=== PATIENT | female | born 1975 | race Caucasian/White ===

== ENCOUNTER 2023-01-23 12:17 | Inpatient (IN) | payer OTHER, MEDICAID, SELFPAY ==
[2023-01-23] VITALS (25 sets, daily range): BP systolic 91–113; BP diastolic 59–81; PULSE 65–115; RESP 11–23; TEMP 36.3–37.9; O2SAT 95–100; BMI 14.1
--- NOTE | 2023-01-23 | DI.CT.S_ITS ---
PROCEDURE: CT CHEST ABD PEL W CON INDICATIONS: fever infection TECHNIQUE: After the administration of intravenous contrast, 5 mm thick sections acquired from the lung apices to the symphysis. 2.5 mm thick coronal and sagittal reformats were acquired. Additional 7 mm thick coronal maximum intensity projection (MIP) reformats acquired through the lungs. Optional 10-minute delayed imaging may be performed from the kidneys to the bladder. For radiation dose reduction, the following was used: automated exposure control, adjustment of mA and/or kV according to patient size. COMPARISON: Outside Film, CT, CT ABDOMEN PELVIS WITH CONTRAST, 06/14/2021, 16:23. FINDINGS: Image quality: Excellent. CHEST: Lungs: No pulmonary contusions or lacerations. Moderate apically predominant emphysema. No acute airspace opacities. No pneumothorax or hemothorax. Central and peripheral airways appear patent and normal in caliber. Mediastinum: No mediastinal hematomas. Heart size is normal. No pericardial effusion. Thoracic aorta and pulmonary arteries demonstrate normal size and enhancement. No mediastinal or hilar adenopathy. Esophagus is normal in caliber. No hiatal hernia. Chest wall: No rib fractures. No subcutaneous emphysema. No axillary or supraclavicular adenopathy. Thyroid gland is within normal limits. ABDOMEN: Solid organs: Liver is normal in size and enhancement, without lacerations. Gallbladder is within normal. Biliary system is non-dilated. A common bile duct stent is present. There is increased, severe pancreatic ductal dilatation. Increased, severe diffuse calcifications throughout the pancreas. Ill-defined low-density focus within the uncinate process of the pancreas measuring 27 mm. There is a peripherally enhancing low-density focus adjacent to the pancreatic tail measuring roughly 50 mm. Spleen is normal in size and enhancement, without lacerations. No adrenal hematomas. Both kidneys enhance normally, without hydronephrosis or lacerations. Nonobstructing 4 mm calculus within the inferior pole left kidney. Peritoneum and bowel: No pneumoperitoneum. Small amount of free fluid in the pelvis. Unenhanced bowel loops demonstrate normal wall thickness and caliber. Nodes and vessels: No retroperitoneal or mesenteric adenopathy. Aorta and inferior vena cava are normal in size and enhancement. Miscellaneous: No ventral hernias. PELVIS: Genitourinary: Bladder wall thickness is normal. Miscellaneous: No inguinal hernias or adenopathy. Bones: Pelvic ring and hip joints appear intact. No vertebral compression fractures. IMPRESSION: 1. Chronic pancreatitis. 2. Low-density focus within the uncinate process of the pancreas, consistent with neoplasm versus pseudocyst versus infection. There is associated pancreatic ductal dilatation. 3. Peripancreatic fluid collection adjacent to the pancreatic tail, consistent with pseudocyst versus abscess. 4. Small amount of free fluid within the pelvis. 5. Nonobstructing left renal calculus. 6. Emphysema. Dictated by: Christian Sims M.D. on 01/23/2023 at 14:06 Approved by: Christian Sims M.D. on 01/23/2023 at 14:10
--- NOTE | 2023-01-23 12:33 | DI.RAD.S_ITS ---
PROCEDURE: XR CHEST 1V INDICATIONS: altered mental status TECHNIQUE: One view of the chest was acquired. COMPARISON: None. FINDINGS: Surgical changes and devices: None. Lungs and pleura: Lungs are clear. No pleural effusions or pneumothorax. Mediastinum: Mediastinal contours appear normal. Heart size is normal. Bones and chest wall: No suspicious bony lesions. Overlying soft tissues appear unremarkable. IMPRESSION: No acute process. Dictated by: Christian Sims M.D. on 01/23/2023 at 13:01 Approved by: Christian Sims M.D. on 01/23/2023 at 13:02
--- NOTE | 2023-01-23 12:35 | PC.NURSE ---
Dr. meyers aware of VS and presentation
--- NOTE | 2023-01-23 12:51 | ED_ITS ---
HPI - Weakness General Chief complaint: Weakness Stated complaint: Twitching, dizzy, weak Time Seen by Provider: 01/23/23 12:23 Source: patient and family Mode of arrival: Wheelchair History of Present Illness HPI Narrative: Patient is a 47-year-old female history of alcohol abuse sober for 3 years general decline here with son presenting today with slurring speech altered mental status and shaking. Apparently was at [facility] recently she reports some abdominal pain some sort of imaging and blood transfusion. Unclear if she has blood in stool or vomiting blood she is overall very poor historian. She seems altered and obviously shaking son reports never been this way before. She is identified as sepsis with temperature of a 100.2? tachycardic and soft blood pressure 101/68. She has no abdominal pain. Not currently vomiting Records from [facility] on January 05 received and reviewed. Patient has chronic pancreatitis she is biliary stent she was supposed to see GI for stent removal stone removal and pain injection however due to pain they referred her to the ED she has been seen at the ED numerous times for pain and unable to make GI appointments which were canceled for various reasons. Patient had blood work at that time and a CT which showed acute on chronic pancreatitis she was resting comfortably instructed to follow-up with GI apparently she sees Dr. Reveles at [facility]. There is an addendum at the end of the note on January 07 which shows that urine culture grew E coli however at the time of collection there were no signs or symptoms. She did have a few leukocyte esterase and bacteria no nitrates. Related Data Allergies Allergy/AdvReac Type Severity Reaction Status Date / Time No Known Drug Allergies Allergy Verified 01/23/23 13:02 Patient History Social History household members: children Smoking Status: Current every day smoker alcohol intake: former Exam Initial Vital Signs Initial Vital Signs: Vital Signs Blood Pressure 101/68 01/23/23 12:22 GENERAL: Alert thin pale 47-year-old female HEENT: Head atraumatic,EOMI, pupils reactive, face symmetric, moist mucous membranes CARDIOVASCULAR: Regular rate and rhythm without murmurs, rubs or gallops. RESPIRATORY: Breath sounds equal bilaterally, no wheezes rales or rhonchi. ABDOMEN: Soft, nontender. Normoactive bowel sounds all 4 quadrants. No guarding or rebound. EXTREMITIES: Normal range of motion, no clubbing or edema. Neurovascularly intact NEUROLOGICAL: Alert and oriented x3, tremors shaking twitching moving all extremities generally weak SKIN: Warm, dry, no laceration, no petechiae, no rashes or lesions. Course Orders Ordered: ED Orders 01/23/23 12:33 XR chest 1V Stat EKG-12 Lead Stat 01/23/23 12:45 Acetaminophen Stat Blood Culture Stat Complete Blood Count AUTO DIFF Stat Comprehensive Metabolic Panel Stat ETOH [Ethanol (ETOH)] Stat Lactate (Lactic Acid) Stat Lipase Stat MAG [Magnesium] Stat Procalcitonin Stat Salicylate Stat TSH [Thyroid Stimulating Hormone] Stat 01/23/23 12:50 Respiratory Panel (Film Array) Stat 01/23/23 13:02 CT head/brain wo con Stat 01/23/23 13:17 Ammonia (NH3) Stat Type and Screen Stat 01/23/23 15:01 MR Ab Pancreatic/MRCP protocol Stat 01/23/23 15:10 UA Complete [Urinalysis and Microscopic] Stat Urine Drug Screen, Rapid Stat Enoxaparin Sodium (Enoxaparin 30 Mg/0.3 Ml Syringe) 30 mg SUBCUT DAILY JANETT Piperacillin Sod/Tazobactam (Sod 4.5 gm/ Sodium Chloride) 100 mls @ 25 mls/hr IV Q8H JANETT Ondansetron HCl (Ondansetron 4 Mg/2 Ml Inj) 4 mg IV Q6HR PRN PRN Reason: Nausea And Vomiting Ondansetron HCl (Ondansetron 4 Mg Odt) 4 mg SL Q6HR PRN PRN Reason: Nausea Discontinued Medications Sodium Chloride (Normal Saline 0.9%) 1,088.61 mls @ 362.87 mls/hr 30 ml/kg infuse over 3 hr (1088.61 ml) IV NOW ONE Stop: 01/23/23 16:37 Last Infusion: 01/23/23 14:03 Dose: Infused Documented By: Admin: 01/23/23 13:47 Dose: 362.87 mls/hr Documented By: PHIL Sodium Chloride (Normal Saline 0.9%) 1,000 mls @ 1,000 mls/hr IV BOLUS ONE Stop: 01/23/23 14:58 Last Infusion: 01/23/23 15:17 Dose: Infused Documented By: Admin: 01/23/23 14:03 Dose: 1,000 mls/hr Documented By: PHIL Piperacillin Sod/Tazobactam (Sod 4.5 gm/ Sodium Chloride) 100 mls @ 200 mls/hr IV NOW ONE Stop: 01/23/23 14:09 Last Infusion: 01/23/23 15:17 Dose: Infused Documented By: Admin: 01/23/23 14:27 Dose: 200 mls/hr Documented By: PHIL Vital Signs Vital signs: Vital Signs - 8 hr 01/23/23 12:22 01/23/23 12:23 01/23/23 12:27 Temperature 100.2 F H Pulse Rate 115 H 111 H Respiratory Rate 20 Blood Pressure 101/68 101/68 Pulse Oximetry 97 98 Oxygen Delivery Method Room Air 01/23/23 12:30 01/23/23 12:30 01/23/23 12:45 Temperature Pulse Rate 109 H 107 H Respiratory Rate 14 15 Blood Pressure 111/74 Pulse Oximetry 97 95 Oxygen Delivery Method 01/23/23 12:45 01/23/23 13:00 01/23/23 13:00 Temperature Pulse Rate 104 H Respiratory Rate 20 Blood Pressure 108/76 112/77 Pulse Oximetry 98 Oxygen Delivery Method 01/23/23 13:15 01/23/23 13:15 01/23/23 13:30 Temperature Pulse Rate 95 H 83 Respiratory Rate 16 16 Blood Pressure 113/78 Pulse Oximetry 99 100 Oxygen Delivery Method 01/23/23 14:00 01/23/23 14:27 01/23/23 14:27 Temperature Pulse Rate 93 H 96 H Respiratory Rate 17 18 Blood Pressure 105/76 Pulse Oximetry 98 95 Oxygen Delivery Method 01/23/23 14:30 01/23/23 14:30 01/23/23 14:45 Temperature Pulse Rate 82 87 Respiratory Rate 16 16 Blood Pressure 110/81 Pulse Oximetry 96 96 Oxygen Delivery Method 01/23/23 14:45 01/23/23 15:00 01/23/23 15:00 Temperature Pulse Rate 95 H Respiratory Rate 18 Blood Pressure 109/71 113/75 Pulse Oximetry 96 Oxygen Delivery Method 01/23/23 15:52 01/23/23 15:59 01/23/23 16:00 Temperature Pulse Rate 98 H 98 H Respiratory Rate 18 11 L Blood Pressure 101/74 Pulse Oximetry 99 Oxygen Delivery Method 01/23/23 16:00 01/23/23 16:15 01/23/23 16:15 Temperature Pulse Rate 97 H 94 H Respiratory Rate 14 23 Blood Pressure 96/71 Pulse Oximetry 98 96 Oxygen Delivery Method 01/23/23 16:30 01/23/23 16:30 01/23/23 17:00 Temperature Pulse Rate 88 84 Respiratory Rate 13 11 L Blood Pressure 98/64 Pulse Oximetry 96 Oxygen Delivery Method 01/23/23 17:15 01/23/23 17:15 01/23/23 17:30 Temperature Pulse Rate 82 Respiratory Rate 20 Blood Pressure 111/77 106/67 Pulse Oximetry 97 Oxygen Delivery Method Room Air 01/23/23 17:30 Temperature Pulse Rate 75 Respiratory Rate 16 Blood Pressure Pulse Oximetry 96 Oxygen Delivery Method MDM - Weakness Lab Data 01/23/23 12:45 01/23/23 12:45 Labs: Lab Results 01/23/23 01/23/23 01/23/23 Range/Units 12:45 12:50 13:17 WBC 15.3 H (4.5-11.0) X10^3/uL RBC 2.83 L (4.0-5.2) X10^6/uL Hgb 10.8 L (12.0-16.0) g/dL Hct 31.8 L (36-46) % MCV 112.1 H (80-100) fL MCH 38.3 H (26-34) PG MCHC 34.1 (30-36) % RDW 18.5 H (11.6-14.8) % Plt Count 108 L (150-400) X10^3/uL Neut % (Auto) Not Reportable Lymph % (Auto) Not Reportable Hampton % (Auto) Not Reportable Eos % (Auto) Not Reportable Baso % (Auto) Not Reportable Lymph # (Auto) Not Reportable [place] # (Auto) Not Reportable Baso # (Auto) Not Reportable Total Counted 100 Seg Neutrophils % 83.0 H (38-70) % Band Neutrophils % 2.0 L (3-7) % Lymphocytes % (Manual) 12.0 L (25-45) % Monocytes % (Manual) 3.0 (2-11) % Neutrophils # (Manual) 89688 H (3432-0103) /uL RBC Morphology See below Anisocytosis 1+ H Macrocytosis 2+ H Target Cells 2+ H Sodium 135 L (137-145) mmol/L Potassium 3.0 L (3.4-5.1) mmol/L Chloride 101 (98-107) mmol/L Carbon Dioxide 30 (22-32) mmol/L BUN 13 (7-17) mg/dL Creatinine 0.89 (0.52-1.04) mg/dL Estimated GFR > 60 (>60) mL/min BUN/Creatinine Ratio 14.6 (6-22) Glucose 105 H (70-100) mg/dL Lactate 2.6 H (0.7-2.1) mmol/L Calcium 8.3 L (8.4-10.2) mg/dL Magnesium 2.1 (1.6-2.3) mg/dL Total Bilirubin 1.3 (0.2-1.3) mg/dL AST 43 H (14-36) IU/L ALT 28 (<35) IU/L Alkaline Phosphatase 289 H (38-126) U/L Ammonia Cancelled 25 Total Protein 5.3 L (6.3-8.2) g/dL Albumin 2.3 L (3.5-5.0) g/dL Globulin 3.0 (1.7-4.1) g/dL Albumin/Globulin Ratio 0.8 L (1.0-2.8) Lipase 32 (23-300) U/L Procalcitonin 30.6 H (<0.5) ng/mL TSH 0.841 (0.47-4.68) uIU/mL Urine Color Urine Appearance Urine pH (4.5-8.0) Ur Specific Johnson (1.000-1.035) Urine Protein (Negative) Urine Glucose (UA) (Negative) g/dL Urine Ketones (NEGATIVE) Urine Occult Blood (Negative) Urine Nitrate (Negative) Urine Bilirubin (NEGATIVE) Urine Urobilinogen (0.2) E.U./dL Ur Leukocyte Esterase (NEGATIVE) Urine RBC (0-5/HPF) Urine WBC (0-5/HPF) Ur Squamous Epith Cells (0-5/HPF) Urine Bacteria (None) Ur Culture Indicated? Salicylates < 1.0 (<20) mg/dL U Opiates 300ng/mL cut (Negative) Ur Oxycodone Screen (Negative) Urine Methadone Screen (Negative) Acetaminophen < 10 (10-30) ug/mL Ur Barbiturates Screen (Negative) U Tricyclic Antidepress (Negative) Ur Phencyclidine Scrn (Negative) Ur Amphetamines Screen (Negative) U Methamphetamines Scrn (Negative) Ur MDMA Scrn (Ecstasy) (Negative) U Benzodiazepines Scrn (Negative) Urine Cocaine Screen (Negative) U Marijuana (THC) Screen (Negative) Ethyl Alcohol < 10 ( - 10) mg/dL Chlamy pneumoniae PCR Not detected (Not Detect) Adenovirus (PCR) Not detected (Not Detect) B.parapertussis DNA PCR Not detected (Not Detecte) Coronavirus OC43 (PCR) Not detected (Not Detect) Coronavirus HKU1 (PCR) Not detected (Not Detect) Coronavirus 229E (PCR) Not detected (Not Detect) SARS-CoV-2 (PCR) Not detected (Not Detecte) Coronavirus NL63 (PCR) Not detected (Not Detect) Human Metapneumovir PCR Not detected (Not Detect) Influenza Type A (PCR) Not detected (Not Detect) Influenza Type B (PCR) Not detected (Not Detect) M. pneumoniae (PCR) Not detected (Not Detect) Parainfluenza 1 (PCR) Not detected (Not Detect) Parainfluenza 2 (PCR) Not detected (Not Detect) Parainfluenza 3 (PCR) Not detected (Not Detect) Parainfluenza 4 (PCR) Not detected (Not Detect) RSV (PCR) Not detected (Not Detect) Entero/Rhino (PCR) Not detected (Not Detect) Blood Type O Negative Antibody Screen Negative 01/23/23 01/23/23 Range/Units 14:55 15:10 WBC (4.5-11.0) X10^3/uL RBC (4.0-5.2) X10^6/uL Hgb (12.0-16.0) g/dL Hct (36-46) % MCV (80-100) fL MCH (26-34) PG MCHC (30-36) % RDW (11.6-14.8) % Plt Count (150-400) X10^3/uL Neut % (Auto) Lymph % (Auto) Hampton % (Auto) Eos % (Auto) Baso % (Auto) Lymph # (Auto) Hampton # (Auto) Baso # (Auto) Total Counted Seg Neutrophils % (38-70) % Band Neutrophils % (3-7) % Lymphocytes % (Manual) (25-45) % Monocytes % (Manual) (2-11) % Neutrophils # (Manual) (7256-8400) /uL RBC Morphology Anisocytosis Macrocytosis Target Cells Sodium (137-145) mmol/L Potassium (3.4-5.1) mmol/L Chloride (98-107) mmol/L Carbon Dioxide (22-32) mmol/L BUN (7-17) mg/dL Creatinine (0.52-1.04) mg/dL Estimated GFR (>60) mL/min BUN/Creatinine Ratio (6-22) Glucose (70-100) mg/dL Lactate 1.6 (0.7-2.1) mmol/L Calcium (8.4-10.2) mg/dL Magnesium (1.6-2.3) mg/dL Total Bilirubin (0.2-1.3) mg/dL AST (14-36) IU/L ALT (<35) IU/L Alkaline Phosphatase (38-126) U/L Ammonia Total Protein (6.3-8.2) g/dL Albumin (3.5-5.0) g/dL Globulin (1.7-4.1) g/dL Albumin/Globulin Ratio (1.0-2.8) Lipase (23-300) U/L Procalcitonin (<0.5) ng/mL TSH (0.47-4.68) uIU/mL Urine Color Yellow Urine Appearance Clear Urine pH 6.0 (4.5-8.0) Ur Specific Johnson <=1.005 (1.000-1.035) Urine Protein Negative (Negative) Urine Glucose (UA) Negative (Negative) g/dL Urine Ketones Negative (NEGATIVE) Urine Occult Blood Negative (Negative) Urine Nitrate Negative (Negative) Urine Bilirubin Negative (NEGATIVE) Urine Urobilinogen 0.2 (0.2) E.U./dL Ur Leukocyte Esterase Negative (NEGATIVE) Urine RBC None seen (0-5/HPF) Urine WBC None seen (0-5/HPF) Ur Squamous Epith Cells 1-5 /hpf (0-5/HPF) Urine Bacteria Occasional (0-1) (None) Ur Culture Indicated? Cult not indicated Salicylates (<20) mg/dL U Opiates 300ng/mL cut Negative (Negative) Ur Oxycodone Screen Negative (Negative) Urine Methadone Screen Negative (Negative) Acetaminophen (10-30) ug/mL Ur Barbiturates Screen Negative (Negative) U Tricyclic Antidepress Negative (Negative) Ur Phencyclidine Scrn Negative (Negative) Ur Amphetamines Screen Negative (Negative) U Methamphetamines Scrn Negative (Negative) Ur MDMA Scrn (Ecstasy) Negative (Negative) U Benzodiazepines Scrn Negative (Negative) Urine Cocaine Screen Negative (Negative) U Marijuana (THC) Screen Positive H (Negative) Ethyl Alcohol ( - 10) mg/dL Chlamy pneumoniae PCR (Not Detect) Adenovirus (PCR) (Not Detect) B.parapertussis DNA PCR (Not Detecte) Coronavirus OC43 (PCR) (Not Detect) Coronavirus HKU1 (PCR) (Not Detect) Coronavirus 229E (PCR) (Not Detect) SARS-CoV-2 (PCR) (Not Detecte) Coronavirus NL63 (PCR) (Not Detect) Human Metapneumovir PCR (Not Detect) Influenza Type A (PCR) (Not Detect) Influenza Type B (PCR) (Not Detect) M. pneumoniae (PCR) (Not Detect) Parainfluenza 1 (PCR) (Not Detect) Parainfluenza 2 (PCR) (Not Detect) Parainfluenza 3 (PCR) (Not Detect) Parainfluenza 4 (PCR) (Not Detect) RSV (PCR) (Not Detect) Entero/Rhino (PCR) (Not Detect) Blood Type Antibody Screen Point of Care Testing Test Results Negative Glucose POC 119 Imaging Data Chest x-ray: Radiologist Impression: PROCEDURE: XR CHEST 1V INDICATIONS: altered mental status TECHNIQUE: One view of the chest was acquired. COMPARISON: None. FINDINGS: Surgical changes and devices: None. Lungs and pleura: Lungs are clear. No pleural effusions or pneumothorax. Mediastinum: Mediastinal contours appear normal. Heart size is normal. Bones and chest wall: No suspicious bony lesions. Overlying soft tissues appear unremarkable. IMPRESSION: No acute process. Dictated by: Christian Sims M.D. on 01/23/2023 at 13:01 CT scan - head: Radiologist Impression: PROCEDURE: CT HEAD/BRAIN WO CON INDICATIONS: slurring confusion TECHNIQUE: Noncontrast 4.5 mm thick angled axial sections acquired from the foramen magnum to the vertex, with coronal and sagittal reformats. For radiation dose reduction, the following was used: automated exposure control, adjustment of mA and/or kV according to patient size. COMPARISON: None. FINDINGS: Image quality: Excellent. CSF spaces: Basal cisterns are patent. No extra-axial fluid collections. Ventricles are normal in size and shape. Brain: No midline shift. No intracranial masses or hemorrhage. Baltazar-white matter interface is normal. Skull and face: Calvarium and visualized facial bones are intact, without suspicious lesions. Sinuses: Visualized sinuses and mastoids are clear. IMPRESSION: No acute intracranial abnormality. Dictated by: Christian Sims M.D. on 01/23/2023 at 13:39 chest/ab/pelvis: Radiologist Impression: PROCEDURE: CT CHEST ABD PEL W CON INDICATIONS: fever infection TECHNIQUE: After the administration of intravenous contrast, 5 mm thick sections acquired from the lung apices to the symphysis. 2.5 mm thick coronal and sagittal reformats were acquired. Additional 7 mm thick coronal maximum intensity projection (MIP) reformats acquired through the lungs. Optional 10-minute delayed imaging may be performed from the kidneys to the bladder. For radiation dose reduction, the following was used: automated exposure control, adjustment of mA and/or kV according to patient size. COMPARISON: Outside Film, CT, CT ABDOMEN PELVIS WITH CONTRAST, 06/14/2021, 16:23. FINDINGS: Image quality: Excellent. CHEST: Lungs: No pulmonary contusions or lacerations. Moderate apically predominant emphysema. No acute airspace opacities. No pneumothorax or hemothorax. Central and peripheral airways appear patent and normal in caliber. Mediastinum: No mediastinal hematomas. Heart size is normal. No pericardial effusion. Thoracic aorta and pulmonary arteries demonstrate normal size and enhancement. No mediastinal or hilar adenopathy. Esophagus is normal in caliber. No hiatal hernia. Chest wall: No rib fractures. No subcutaneous emphysema. No axillary or supraclavicular adenopathy. Thyroid gland is within normal limits. ABDOMEN: Solid organs: Liver is normal in size and enhancement, without lacerations. Gallbladder is within normal. Biliary system is non-dilated. A common bile duct stent is present. There is increased, severe pancreatic ductal dilatation. Increased, severe diffuse calcifications throughout the pancreas. Ill-defined low-density focus within the uncinate process of the pancreas measuring 27 mm. There is a peripherally enhancing low-density focus adjacent to the pancreatic tail measuring roughly 50 mm. Spleen is normal in size and enhancement, without lacerations. No adrenal hematomas. Both kidneys enhance normally, without hydronephrosis or lacerations. Nonobstructing 4 mm calculus within the inferior pole left kidney. Peritoneum and bowel: No pneumoperitoneum. Small amount of free fluid in the pelvis. Unenhanced bowel loops demonstrate normal wall thickness and caliber. Nodes and vessels: No retroperitoneal or mesenteric adenopathy. Aorta and inferior vena cava are normal in size and enhancement. Miscellaneous: No ventral hernias. PELVIS: Genitourinary: Bladder wall thickness is normal. Miscellaneous: No inguinal hernias or adenopathy. Bones: Pelvic ring and hip joints appear intact. No vertebral compression fractures. IMPRESSION: 1. Chronic pancreatitis. 2. Low-density focus within the uncinate process of the pancreas, consistent with neoplasm versus pseudocyst versus infection. There is associated pancreatic ductal dilatation. 3. Peripancreatic fluid collection adjacent to the pancreatic tail, consistent with pseudocyst versus abscess. 4. Small amount of free fluid within the pelvis. 5. Nonobstructing left renal calculus. 6. Emphysema. Dictated by: Christian Sims M.D. on 01/23/2023 at 14:06 MRCP: Radiologist Impression: PROCEDURE: MR AB PANCREATIC/MRCP PROTOCOL INDICATIONS: Pancreatic pseudocyst vs abscess +fever pain TECHNIQUE: Coronal HASTE through the abdomen, axial 2-D FLASH in- and [id number], and breath-hold T2 FSE with fat saturation through the biliary system and pancreas. Oblique coronal and axial thin-slice HASTE, radial thick-slab HASTE centered on the extrahepatic bile ducts. Pain postcontrast T1 weighted vibe images were performed. Intravenous secretin: Not requested. COMPARISON: [facility], CT, CT CHEST ABD PEL W CON, 01/23/2023, 13:44. Correlation is also made with outside CT dated 01/05/2023 FINDINGS: Image quality: This examination is limited by involuntary motion artifact. Pancreas and biliary system: The pancreas demonstrates generalized irregularity. The pancreatic duct is again shown to be dilated, measuring up to 11 mm. Within the uncinate process of the pancreas, there is a T2 hyperintense lesion seen that measures up to 2.5 cm. On postcontrast imaging, there is minimal rim enhancement seen. Additional smaller cystic lesions can be seen within the head and uncinate process of the pancreas. At the tail of the pancreas, there is an additional cystic lesion seen measuring up to 11 mm, as on series 5, image 14. There is [id number] fluid seen adjacent to the pancreas. Just superior to the tail of the pancreas, there is a lobulated T2 hyperintense lesion measuring 4.6 by 4.4 cm in greatest axial dimension, with a craniocaudal extent of 2.9 cm. On postcontrast imaging, no significant surrounding inflammatory changes are seen. Intra- and extra-hepatic biliary ducts are non dilated. A biliary stent is in place, which is overall better seen by CT. Gallbladder demonstrates no significant MRI abnormality. Other solid organs: Liver is normal in size. Spleen is normal in size. No adrenal nodules. Both kidneys are normal in size, without hydronephrosis. Nodes and vessels: No retroperitoneal or mesenteric adenopathy by size criteria. Aorta and inferior vena cava are normal in size. Bowel and peritoneum: Unenhanced bowel loops are normal in caliber. No free fluid. Lung bases: No basal pleural effusions. Heart size is normal. Bones and soft tissues: No ventral hernias. Bone marrow is of normal overall signal. IMPRESSION: Abnormal pancreas, with findings of chronic pancreatitis. The inflammatory change involving the head and uncinate process of pancreas overall appear improved compared to the outside CT dated 01/05/2023. Cystic lesions are seen involving the pancreas, including a 2.5 cm lesion involving the pancreatic head. Neoplasm is possible, yet considered to be less likely. Please consider short-term follow-up in approximately 3 months. At the tail of the pancreas, there is a prominent lobulated a cystic lesion seen that measures up to 4.6 cm on this study. This is felt most likely be related to a pseudocyst, as there is only mild enhancement seen associated with this lesion. This lesion is new compared to 01/05/2023. Dictated by: Rafal Meza M.D. on 01/23/2023 at 15:38 ECG Data Interpretation: Sinus tachycardia rate 109 AR interval 144 QRS [address] changes MDM Narrative Medical decision making narrative: Patient 47-year-old female appears chronic ill, she has obvious involuntary twitching occasionally. She presents today with fever tachycardia and low blood pressure concerning for sepsis. She is given IV fluids. Her mental status initially altered. Blood work: Leukocytosis 15.3 hemoglobin 10.8 hematocrit 31.8 MCV 112 platelets 108, sodium 135 potassium 3.0 creatinine 0.89 glucose 105 lactate 2.6 with repeat at 1.6, bilirubin 1.3 AST 43 ALT 28 alk-phos 289 ammonia 25 albumin 2.3 lipase 32 procalcitonin 30.6, urinalysis no leukocytes, nitrites or blood no evidence of a UTI, toxicology screen only positive for marijuana Imaging described above CT revealed pseudocyst versus abscess of pancreas Initially thought patient had UTI sepsis she had it positive E coli urine January 07 however urinalysis is clean today. She does have some mild chronic ongoing abdominal pain. Unclear if it is worse or the same. She has a biliary stent placed unclear if this is infected. Patient's mental status improved significantly with IV fluids and fever control. She does not have a headache or any meningeal signs. I think less likely. Certainly concerning for bacterial infection with a procalcitonin of [address] Luz on-call GI about patient concern biliary stent maybe infected. However imaging does not support that. At this time he recommends waiting for blood cultures and further workup. Dr. Weiss updated patient's symptoms test results and accepts patient. Discharge Plan Departure Patient Disposition: Admitted As Inpatient Clinical Impression: Sepsis, Chronic pancreatitis Admit Date/Time: 01/23/23 17:44 Admit Provider: Fabiola Moreno
[2023-01-23 13:00] LABS: Hematocrit 31.8 % (36-46); Hemoglobin 10.8 g/dL (12.0-16.0); Mean Corpuscular HGB Conc 34.1 % (30-36); Mean Corpuscular Hemoglobin 38.3 PG (26-34); Mean Corpuscular Volume 112.1 fL (80-100); Platelet Count 108 X10^3/uL (150-400); Red Blood Cell Count 2.83 X10^6/uL (4.0-5.2); Red Cell Distribution Width 18.5 % (11.6-14.8); White Blood Cell Count 15.3 X10^3/uL (4.5-11.0)
[2023-01-23 13:01] LABS: Add Manual Diff / Slide Review YES
--- NOTE | 2023-01-23 13:02 | DI.CT.S_ITS ---
PROCEDURE: CT HEAD/BRAIN WO CON INDICATIONS: slurring confusion TECHNIQUE: Noncontrast 4.5 mm thick angled axial sections acquired from the foramen magnum to the vertex, with coronal and sagittal reformats. For radiation dose reduction, the following was used: automated exposure control, adjustment of mA and/or kV according to patient size. COMPARISON: None. FINDINGS: Image quality: Excellent. CSF spaces: Basal cisterns are patent. No extra-axial fluid collections. Ventricles are normal in size and shape. Brain: No midline shift. No intracranial masses or hemorrhage. Baltazar-white matter interface is normal. Skull and face: Calvarium and visualized facial bones are intact, without suspicious lesions. Sinuses: Visualized sinuses and mastoids are clear. IMPRESSION: No acute intracranial abnormality. Dictated by: Christian Sims M.D. on 01/23/2023 at 13:39 Approved by: Christian Sims M.D. on 01/23/2023 at 13:39
[2023-01-23 13:07] LABS: Alanine Aminotransferase 28 IU/L (<35); Albumin 2.3 g/dL (3.5-5.0); Albumin Globulin Ratio 0.8 (1.0-2.8); Alkaline Phosphatase 289 U/L (38-126); Aspartate Aminotransferase 43 IU/L (14-36); BUN Creatinine Ratio 14.6 (6-22); Bilirubin Total 1.3 mg/dL (0.2-1.3); Blood Urea Nitrogen 13 mg/dL (7-17); Calcium 8.3 mg/dL (8.4-10.2); Carbon Dioxide 30 mmol/L (22-32); Chloride 101 mmol/L (98-107); Estimated Glomerular Filt Rate > 60 mL/min (>60); Glucose 105 mg/dL (70-100); HEMOLYSIS 38 (0-50); Sodium 135 mmol/L (137-145); Total Protein 5.3 g/dL (6.3-8.2)
[2023-01-23 13:08] LABS: Lactate (Lactic Acid) 2.6 mmol/L (0.7-2.1); Magnesium 2.1 mg/dL (1.6-2.3)
[2023-01-23 13:16] LABS: Acetaminophen < 10 ug/mL (10-30); Ethanol (ETOH) < 10 mg/dL; Lipase 32 U/L (23-300); Salicylate < 1.0 mg/dL (<20)
[2023-01-23 13:23] LABS: Procalcitonin 30.6 ng/mL (<0.5)
[2023-01-23 13:29] LABS: Neutrophils Absolute Manual 13005 /uL (3000-5900); Target Cells 2+; Total Cells Counted 100
[2023-01-23 13:30] LABS: Anisocytosis 1+; Macrocytosis 2+
[2023-01-23 13:44] LABS: Ammonia (NH3) 25 umol/L (9-30)
[2023-01-23 13:50] LABS: Thyroid Stimulating Hormone 0.841 uIU/mL (0.47-4.68)
[2023-01-23 13:56] LABS: Adenovirus Not Detected (Not Detect); B. parapertussis Not Detected (Not Detecte); Bordetella pertussis Not Detected (Not Detect); Chlamydophila pneumoniae Not Detected (Not Detect); Coronavirus 229E Not Detected (Not Detect); Coronavirus HKU1 Not Detected (Not Detect); Coronavirus NL 63 Not Detected (Not Detect); Coronavirus OC43 Not Detected (Not Detect); Human Metapneumovirus Not Detected (Not Detect); Human Rhinovirus/Enterovirus Not Detected (Not Detect); Influenza A Not Detected (Not Detect); Influenza B Not Detected (Not Detect); Mycoplasma pneumoniae Not Detected (Not Detect); Parainfluenza Virus 1 Not Detected (Not Detect); Parainfluenza Virus 2 Not Detected (Not Detect); Parainfluenza Virus 3 Not Detected (Not Detect); Parainfluenza Virus 4 Not Detected (Not Detect); Respiratory Syncytial Virus Not Detected (Not Detect); SARS- CoV-2 Not Detected (Not Detecte)
[2023-01-23] MEDS: SODIUM CHLORIDE 0.9% 1,000 ML 1000 ML IV (14:03)
[2023-01-23] MEDS: PIPERACILLIN/TAZO 4.5 GM in SODIUM CHLORIDE 0.9% 100 ML IV ×2 (14:27→20:14)
[2023-01-23 14:38] LABS: Reflexed Lactate in 2 Hours Y
--- NOTE | 2023-01-23 15:01 | DI.MRI.S_ITS ---
PROCEDURE: MR AB PANCREATIC/MRCP PROTOCOL INDICATIONS: Pancreatic pseudocyst vs abscess +fever pain TECHNIQUE: Coronal HASTE through the abdomen, axial 2-D FLASH in- and [id number], and breath-hold T2 FSE with fat saturation through the biliary system and pancreas. Oblique coronal and axial thin-slice HASTE, radial thick-slab HASTE centered on the extrahepatic bile ducts. Pain postcontrast T1 weighted vibe images were performed. Intravenous secretin: Not requested. COMPARISON: [facility], CT, CT CHEST ABD PEL W CON, 01/23/2023, 13:44. Correlation is also made with outside CT dated 01/05/2023 FINDINGS: Image quality: This examination is limited by involuntary motion artifact. Pancreas and biliary system: The pancreas demonstrates generalized irregularity. The pancreatic duct is again shown to be dilated, measuring up to 11 mm. Within the uncinate process of the pancreas, there is a T2 hyperintense lesion seen that measures up to 2.5 cm. On postcontrast imaging, there is minimal rim enhancement seen. Additional smaller cystic lesions can be seen within the head and uncinate process of the pancreas. At the tail of the pancreas, there is an additional cystic lesion seen measuring up to 11 mm, as on series 5, image 14. There is [id number] fluid seen adjacent to the pancreas. Just superior to the tail of the pancreas, there is a lobulated T2 hyperintense lesion measuring 4.6 by 4.4 cm in greatest axial dimension, with a craniocaudal extent of 2.9 cm. On postcontrast imaging, no significant surrounding inflammatory changes are seen. Intra- and extra-hepatic biliary ducts are non dilated. A biliary stent is in place, which is overall better seen by CT. Gallbladder demonstrates no significant MRI abnormality. Other solid organs: Liver is normal in size. Spleen is normal in size. No adrenal nodules. Both kidneys are normal in size, without hydronephrosis. Nodes and vessels: No retroperitoneal or mesenteric adenopathy by size criteria. Aorta and inferior vena cava are normal in size. Bowel and peritoneum: Unenhanced bowel loops are normal in caliber. No free fluid. Lung bases: No basal pleural effusions. Heart size is normal. Bones and soft tissues: No ventral hernias. Bone marrow is of normal overall signal. IMPRESSION: Abnormal pancreas, with findings of chronic pancreatitis. The inflammatory change involving the head and uncinate process of pancreas overall appear improved compared to the outside CT dated 01/05/2023. Cystic lesions are seen involving the pancreas, including a 2.5 cm lesion involving the pancreatic head. Neoplasm is possible, yet considered to be less likely. Please consider short-term follow-up in approximately 3 months. At the tail of the pancreas, there is a prominent lobulated a cystic lesion seen that measures up to 4.6 cm on this study. This is felt most likely be related to a pseudocyst, as there is only mild enhancement seen associated with this lesion. This lesion is new compared to 01/05/2023. Dictated by: Rafal Meza M.D. on 01/23/2023 at 15:38 Approved by: Rafal Meza M.D. on 01/23/2023 at 15:48
[2023-01-23 15:15] LABS: Appearance Urine UA CLEAR; Bilirubin Urine UA NEGATIVE (NEGATIVE); Color Urine UA YELLOW; Glucose Urine UA NEGATIVE (Negative); Ketones Urine UA NEGATIVE (NEGATIVE); Leukocyte Esterase Urine UA NEGATIVE (NEGATIVE); Nitrite Urine UA NEGATIVE (Negative); Occult Blood Urine UA NEGATIVE (Negative); Protein Urine UA NEGATIVE (Negative); Specific Gravity Urine UA <=1.005 (1.000-1.035); Urobilinogen Urine UA 0.2 E.U./dL (0.2)
[2023-01-23 15:19] LABS: Lactate 2HR (Lactic Acid Rflx) 1.6 mmol/L (0.7-2.1)
[2023-01-23 15:20] LABS: Ur Creatinine Normal (Normal); Ur Specific Gravity Normal (Normal); Urine Tetrahydrocannabinol Positive (Negative); Urine pH Normal (Normal)
[2023-01-23 15:21] LABS: UR Morphine/Opiate cutoff 300 Negative (Negative); Urine Amphetamines Negative (Negative); Urine Barbiturates Negative (Negative); Urine Benzodiazepines Negative (Negative); Urine Cocaine Negative (Negative); Urine MDMA Negative (Negative); Urine Methadone Negative (Negative); Urine Methamphetamines Negative (Negative); Urine Oxycodone Negative (Negative); Urine Phencyclidine Negative (Negative); Urine Tricyclic Antidepressant Negative (Negative)
[2023-01-23 15:46] LABS: Bacteria Urine Occasional (0-1); Culture Indicated Urine Cult Not Indicated; RBC Urine None Seen (0-5/HPF); Squamous Epithelial Cell Urine 1-5 /HPF (0-5/HPF); WBC Urine None Seen (0-5/HPF)
--- NOTE | 2023-01-23 17:46 | P.HP_ITS ---
History of Present Illness History of Present Illness Date Patient Seen: 01/23/23 Chief complaint: Twitching, dizzy, weak Meds Home Medications and Allergies Allergies Allergy/AdvReac Type Severity Reaction Status Date / Time No Known Drug Allergies Allergy Verified 01/23/23 13:02 Exam Vital Signs (past 8 hours): - 01/23/23 12:22 01/23/23 12:23 01/23/23 12:27 Temperature 100.2 F H Pulse Rate 115 H 111 H Respiratory Rate 20 Blood Pressure 101/68 101/68 Pulse Oximetry 97 98 Oxygen Delivery Method Room Air 01/23/23 12:30 01/23/23 12:30 01/23/23 12:45 Temperature Pulse Rate 109 H 107 H Respiratory Rate 14 15 Blood Pressure 111/74 Pulse Oximetry 97 95 Oxygen Delivery Method 01/23/23 12:45 01/23/23 13:00 01/23/23 13:00 Temperature Pulse Rate 104 H Respiratory Rate 20 Blood Pressure 108/76 112/77 Pulse Oximetry 98 Oxygen Delivery Method 01/23/23 13:15 01/23/23 13:15 01/23/23 13:30 Temperature Pulse Rate 95 H 83 Respiratory Rate 16 16 Blood Pressure 113/78 Pulse Oximetry 99 100 Oxygen Delivery Method 01/23/23 14:00 01/23/23 14:27 01/23/23 14:27 Temperature Pulse Rate 93 H 96 H Respiratory Rate 17 18 Blood Pressure 105/76 Pulse Oximetry 98 95 Oxygen Delivery Method 01/23/23 14:30 01/23/23 14:30 01/23/23 14:45 Temperature Pulse Rate 82 87 Respiratory Rate 16 16 Blood Pressure 110/81 Pulse Oximetry 96 96 Oxygen Delivery Method 01/23/23 14:45 01/23/23 15:00 01/23/23 15:00 Temperature Pulse Rate 95 H Respiratory Rate 18 Blood Pressure 109/71 113/75 Pulse Oximetry 96 Oxygen Delivery Method 01/23/23 15:52 01/23/23 15:59 01/23/23 16:00 Temperature Pulse Rate 98 H 98 H Respiratory Rate 18 11 L Blood Pressure 101/74 Pulse Oximetry 99 Oxygen Delivery Method Oxygen Delivery Method Room Air Objective Labs 01/23/23 12:45 01/23/23 12:45 Labs: Laboratory Results - last 24 hr 01/23/23 01/23/23 01/23/23 12:45 12:50 13:17 WBC 15.3 H RBC 2.83 L Hgb 10.8 L Hct 31.8 L MCV 112.1 H MCH 38.3 H MCHC 34.1 RDW 18.5 H Plt Count 108 L Neut % (Auto) Not Reportable Lymph % (Auto) Not Reportable [place] % (Auto) Not Reportable Eos % (Auto) Not Reportable Baso % (Auto) Not Reportable Lymph # (Auto) Not Reportable [place] # (Auto) Not Reportable Baso # (Auto) Not Reportable Total Counted 100 Seg Neutrophils % 83.0 H Band Neutrophils % 2.0 L Lymphocytes % (Manual) 12.0 L Monocytes % (Manual) 3.0 Neutrophils # (Manual) 10899 H RBC Morphology See below Anisocytosis 1+ H Macrocytosis 2+ H Target Cells 2+ H Sodium 135 L Potassium 3.0 L Chloride 101 Carbon Dioxide 30 BUN 13 Creatinine 0.89 Estimated GFR > 60 BUN/Creatinine Ratio 14.6 Glucose 105 H Lactate 2.6 H Calcium 8.3 L Magnesium 2.1 Total Bilirubin 1.3 AST 43 H ALT 28 Alkaline Phosphatase 289 H Ammonia Cancelled 25 Total Protein 5.3 L Albumin 2.3 L Globulin 3.0 Albumin/Globulin Ratio 0.8 L Lipase 32 Procalcitonin 30.6 H TSH 0.841 Urine Color Urine Appearance Urine pH Ur Specific [place] Urine Protein Urine Glucose (UA) Urine Ketones Urine Occult Blood Urine Nitrate Urine Bilirubin Urine Urobilinogen Ur Leukocyte Esterase Urine RBC Urine WBC Ur Squamous Epith Cells Urine Bacteria Ur Culture Indicated? Salicylates < 1.0 U Opiates 300ng/mL cut Ur Oxycodone Screen Urine Methadone Screen Acetaminophen < 10 Ur Barbiturates Screen U Tricyclic Antidepress Ur Phencyclidine Scrn Ur Amphetamines Screen U Methamphetamines Scrn Ur MDMA Scrn (Ecstasy) U Benzodiazepines Scrn Urine Cocaine Screen U Marijuana (THC) Screen Ethyl Alcohol < 10 Chlamy pneumoniae PCR Not detected Adenovirus (PCR) Not detected B.parapertussis DNA PCR Not detected Coronavirus OC43 (PCR) Not detected Coronavirus HKU1 (PCR) Not detected Coronavirus 229E (PCR) Not detected SARS-CoV-2 (PCR) Not detected Coronavirus NL63 (PCR) Not detected Human Metapneumovir PCR Not detected Influenza Type A (PCR) Not detected Influenza Type B (PCR) Not detected M. pneumoniae (PCR) Not detected Parainfluenza 1 (PCR) Not detected Parainfluenza 2 (PCR) Not detected Parainfluenza 3 (PCR) Not detected Parainfluenza 4 (PCR) Not detected RSV (PCR) Not detected Entero/Rhino (PCR) Not detected Blood Type O Negative Antibody Screen Negative 01/23/23 01/23/23 14:55 15:10 WBC RBC Hgb Hct MCV MCH MCHC RDW Plt Count Neut % (Auto) Lymph % (Auto) [place] % (Auto) Eos % (Auto) Baso % (Auto) Lymph # (Auto) [place] # (Auto) Baso # (Auto) Total Counted Seg Neutrophils % Band Neutrophils % Lymphocytes % (Manual) Monocytes % (Manual) Neutrophils # (Manual) RBC Morphology Anisocytosis Macrocytosis Target Cells Sodium Potassium Chloride Carbon Dioxide BUN Creatinine Estimated GFR BUN/Creatinine Ratio Glucose Lactate 1.6 Calcium Magnesium Total Bilirubin AST ALT Alkaline Phosphatase Ammonia Total Protein Albumin Globulin Albumin/Globulin Ratio Lipase Procalcitonin TSH Urine Color Yellow Urine Appearance Clear Urine pH 6.0 Ur Specific [place] <=1.005 Urine Protein Negative Urine Glucose (UA) Negative Urine Ketones Negative Urine Occult Blood Negative Urine Nitrate Negative Urine Bilirubin Negative Urine Urobilinogen 0.2 Ur Leukocyte Esterase Negative Urine RBC None seen Urine WBC None seen Ur Squamous Epith Cells 1-5 /hpf Urine Bacteria Occasional (0-1) Ur Culture Indicated? Cult not indicated Salicylates U Opiates 300ng/mL cut Negative Ur Oxycodone Screen Negative Urine Methadone Screen Negative Acetaminophen Ur Barbiturates Screen Negative U Tricyclic Antidepress Negative Ur Phencyclidine Scrn Negative Ur Amphetamines Screen Negative U Methamphetamines Scrn Negative Ur MDMA Scrn (Ecstasy) Negative U Benzodiazepines Scrn Negative Urine Cocaine Screen Negative U Marijuana (THC) Screen Positive H Ethyl Alcohol Chlamy pneumoniae PCR Adenovirus (PCR) B.parapertussis DNA PCR Coronavirus OC43 (PCR) Coronavirus HKU1 (PCR) Coronavirus 229E (PCR) SARS-CoV-2 (PCR) Coronavirus NL63 (PCR) Human Metapneumovir PCR Influenza Type A (PCR) Influenza Type B (PCR) M. pneumoniae (PCR) Parainfluenza 1 (PCR) Parainfluenza 2 (PCR) Parainfluenza 3 (PCR) Parainfluenza 4 (PCR) RSV (PCR) Entero/Rhino (PCR) Blood Type Antibody Screen
--- NOTE | 2023-01-23 17:51 | PM.HP.1 ---
History of Present Illness History of Present Illness Date Patient Seen: 01/23/23 Chief complaint: Twitching, dizzy, weak Narrative: Pat Portillo is a 47-year-old female history of alcohol abuse sober for 3 years general decline who presented with son today with slurring speech, altered mental status and shaking. Apparently was at [facility] recently she reports some abdominal pain some sort of imaging and blood transfusion. Unclear if she has blood in stool or vomiting blood she is overall very poor historian. She seemed altered on presentation and obviously shaking and her son reported she has never been this way before. She was identified as sepsis with temperature of a 100.2? tachycardic and soft blood pressure 101/68. She has no abdominal pain. No vomiting Records from [facility] on January 05 were received by the ER and reviewed. Patient has chronic pancreatitis, she is biliary stent she was supposed to see GI for stent removal, stone removal and pain injection however due to pain they referred her to the ED she has been seen at the ED numerous times for pain and unable to make GI appointments which were canceled for various reasons. Patient had blood work at [facility] presentation time and a CT which showed acute on chronic pancreatitis. She was instructed to follow-up with GI apparently she sees Dr. Reveles at [facility]. There is an addendum at the end of the note on January 07 which shows that urine culture grew E coli however at the time of collection there were no signs or symptoms. She did have a few leukocyte esterase and bacteria no nitrates. However, it appears the urine was not treated. MRCP done today shows chronic pancreatitis and pancreatic cysts with no indication of infection of the biliary stent. This imaging was discussed with GI today and they confirm that infection is likely not GI related. Meds Home Medications and Allergies Allergies Allergy/AdvReac Type Severity Reaction Status Date / Time No Known Drug Allergies Allergy Verified 01/23/23 13:02 Review of Systems Review of Systems Narrative: Fourteen system review and pertinent findings in the history of chief complaint. Exam Vital Signs (past 8 hours): - 01/23/23 12:22 01/23/23 12:23 01/23/23 12:27 Temperature 100.2 F H Pulse Rate 115 H 111 H Respiratory Rate 20 Blood Pressure 101/68 101/68 Pulse Oximetry 97 98 Oxygen Delivery Method Room Air 01/23/23 12:30 01/23/23 12:30 01/23/23 12:45 Temperature Pulse Rate 109 H 107 H Respiratory Rate 14 15 Blood Pressure 111/74 Pulse Oximetry 97 95 Oxygen Delivery Method 01/23/23 12:45 01/23/23 13:00 01/23/23 13:00 Temperature Pulse Rate 104 H Respiratory Rate 20 Blood Pressure 108/76 112/77 Pulse Oximetry 98 Oxygen Delivery Method 01/23/23 13:15 01/23/23 13:15 01/23/23 13:30 Temperature Pulse Rate 95 H 83 Respiratory Rate 16 16 Blood Pressure 113/78 Pulse Oximetry 99 100 Oxygen Delivery Method 01/23/23 14:00 01/23/23 14:27 01/23/23 14:27 Temperature Pulse Rate 93 H 96 H Respiratory Rate 17 18 Blood Pressure 105/76 Pulse Oximetry 98 95 Oxygen Delivery Method 01/23/23 14:30 01/23/23 14:30 01/23/23 14:45 Temperature Pulse Rate 82 87 Respiratory Rate 16 16 Blood Pressure 110/81 Pulse Oximetry 96 96 Oxygen Delivery Method 01/23/23 14:45 01/23/23 15:00 01/23/23 15:00 Temperature Pulse Rate 95 H Respiratory Rate 18 Blood Pressure 109/71 113/75 Pulse Oximetry 96 Oxygen Delivery Method 01/23/23 15:52 01/23/23 15:59 01/23/23 16:00 Temperature Pulse Rate 98 H 98 H Respiratory Rate 18 11 L Blood Pressure 101/74 Pulse Oximetry 99 Oxygen Delivery Method Oxygen Delivery Method Room Air Narrative Exam Narrative: GENERAL: Alert thin pale 47-year-old female HEENT: Head atraumatic,EOMI, pupils reactive, face symmetric, moist mucous membranes CARDIOVASCULAR: Regular rate and rhythm without murmurs, rubs or gallops. RESPIRATORY: Breath sounds equal bilaterally, no wheezes rales or rhonchi. ABDOMEN: Soft, nontender. Normoactive bowel sounds all 4 quadrants. No guarding or rebound. EXTREMITIES: Normal range of motion, no clubbing or edema. Neurovascularly intact NEUROLOGICAL: Alert and oriented x3, tremors shaking twitching moving all extremities generally weak SKIN: Warm, dry, no laceration, no petechiae, no rashes or lesions. Objective Labs 01/23/23 12:45 01/23/23 12:45 Labs: Laboratory Results - last 24 hr 01/23/23 01/23/23 01/23/23 12:45 12:50 13:17 WBC 15.3 H RBC 2.83 L Hgb 10.8 L Hct 31.8 L MCV 112.1 H MCH 38.3 H MCHC 34.1 RDW 18.5 H Plt Count 108 L Neut % (Auto) Not Reportable Lymph % (Auto) Not Reportable [place] % (Auto) Not Reportable Eos % (Auto) Not Reportable Baso % (Auto) Not Reportable Lymph # (Auto) Not Reportable [place] # (Auto) Not Reportable Baso # (Auto) Not Reportable Total Counted 100 Seg Neutrophils % 83.0 H Band Neutrophils % 2.0 L Lymphocytes % (Manual) 12.0 L Monocytes % (Manual) 3.0 Neutrophils # (Manual) 23964 H RBC Morphology See below Anisocytosis 1+ H Macrocytosis 2+ H Target Cells 2+ H Sodium 135 L Potassium 3.0 L Chloride 101 Carbon Dioxide 30 BUN 13 Creatinine 0.89 Estimated GFR > 60 BUN/Creatinine Ratio 14.6 Glucose 105 H Lactate 2.6 H Calcium 8.3 L Magnesium 2.1 Total Bilirubin 1.3 AST 43 H ALT 28 Alkaline Phosphatase 289 H Ammonia Cancelled 25 Total Protein 5.3 L Albumin 2.3 L Globulin 3.0 Albumin/Globulin Ratio 0.8 L Lipase 32 Procalcitonin 30.6 H TSH 0.841 Urine Color Urine Appearance Urine pH Ur Specific [place] Urine Protein Urine Glucose (UA) Urine Ketones Urine Occult Blood Urine Nitrate Urine Bilirubin Urine Urobilinogen Ur Leukocyte Esterase Urine RBC Urine WBC Ur Squamous Epith Cells Urine Bacteria Ur Culture Indicated? Salicylates < 1.0 U Opiates 300ng/mL cut Ur Oxycodone Screen Urine Methadone Screen Acetaminophen < 10 Ur Barbiturates Screen U Tricyclic Antidepress Ur Phencyclidine Scrn Ur Amphetamines Screen U Methamphetamines Scrn Ur MDMA Scrn (Ecstasy) U Benzodiazepines Scrn Urine Cocaine Screen U Marijuana (THC) Screen Ethyl Alcohol < 10 Chlamy pneumoniae PCR Not detected Adenovirus (PCR) Not detected B.parapertussis DNA PCR Not detected Coronavirus OC43 (PCR) Not detected Coronavirus HKU1 (PCR) Not detected Coronavirus 229E (PCR) Not detected SARS-CoV-2 (PCR) Not detected Coronavirus NL63 (PCR) Not detected Human Metapneumovir PCR Not detected Influenza Type A (PCR) Not detected Influenza Type B (PCR) Not detected M. pneumoniae (PCR) Not detected Parainfluenza 1 (PCR) Not detected Parainfluenza 2 (PCR) Not detected Parainfluenza 3 (PCR) Not detected Parainfluenza 4 (PCR) Not detected RSV (PCR) Not detected Entero/Rhino (PCR) Not detected Blood Type O Negative Antibody Screen Negative 01/23/23 01/23/23 14:55 15:10 WBC RBC Hgb Hct MCV MCH MCHC RDW Plt Count Neut % (Auto) Lymph % (Auto) [place] % (Auto) Eos % (Auto) Baso % (Auto) Lymph # (Auto) [place] # (Auto) Baso # (Auto) Total Counted Seg Neutrophils % Band Neutrophils % Lymphocytes % (Manual) Monocytes % (Manual) Neutrophils # (Manual) RBC Morphology Anisocytosis Macrocytosis Target Cells Sodium Potassium Chloride Carbon Dioxide BUN Creatinine Estimated GFR BUN/Creatinine Ratio Glucose Lactate 1.6 Calcium Magnesium Total Bilirubin AST ALT Alkaline Phosphatase Ammonia Total Protein Albumin Globulin Albumin/Globulin Ratio Lipase Procalcitonin TSH Urine Color Yellow Urine Appearance Clear Urine pH 6.0 Ur Specific [place] <=1.005 Urine Protein Negative Urine Glucose (UA) Negative Urine Ketones Negative Urine Occult Blood Negative Urine Nitrate Negative Urine Bilirubin Negative Urine Urobilinogen 0.2 Ur Leukocyte Esterase Negative Urine RBC None seen Urine WBC None seen Ur Squamous Epith Cells 1-5 /hpf Urine Bacteria Occasional (0-1) Ur Culture Indicated? Cult not indicated Salicylates U Opiates 300ng/mL cut Negative Ur Oxycodone Screen Negative Urine Methadone Screen Negative Acetaminophen Ur Barbiturates Screen Negative U Tricyclic Antidepress Negative Ur Phencyclidine Scrn Negative Ur Amphetamines Screen Negative U Methamphetamines Scrn Negative Ur MDMA Scrn (Ecstasy) Negative U Benzodiazepines Scrn Negative Urine Cocaine Screen Negative U Marijuana (THC) Screen Positive H Ethyl Alcohol Chlamy pneumoniae PCR Adenovirus (PCR) B.parapertussis DNA PCR Coronavirus OC43 (PCR) Coronavirus HKU1 (PCR) Coronavirus 229E (PCR) SARS-CoV-2 (PCR) Coronavirus NL63 (PCR) Human Metapneumovir PCR Influenza Type A (PCR) Influenza Type B (PCR) M. pneumoniae (PCR) Parainfluenza 1 (PCR) Parainfluenza 2 (PCR) Parainfluenza 3 (PCR) Parainfluenza 4 (PCR) RSV (PCR) Entero/Rhino (PCR) Blood Type Antibody Screen Assessment & Plan Assessment & Plan narrative: # Sepsis, meets criteria POA, acute - blood cultures, treat with IV Zosyn since most likely cause is urinary tract infection - urine and blood cultures ordered - provide IV fluids - monitor lab - fever consistent with sepsis - hypotension consistent with sepsis - leukocytosis consistent with sepsis - procalcitonin of 30.6 consistent with sepsis #metabolic encephalopathy POA, acute -secondary to sepsis, follow clinically # chronic pancreatitis with pancreatitc cysts POA, chronic - monitor lipase and patient clinically # Biliary stent POA, chronic needs followup with GI on discharge # History of alcohol abuse POA, chronic 3 years sober # recent need for blood transfusion POA, chronic continue to monitor Hb CODE:Full code DVT: enoxaparin 30 mg Surrogate decision maker: shu Interiano I have reviewed home meds and used all available resources to reconcile the home meds. Case discussed with ED physician/APC and patient will be admitted to the hospitalist service for further workup and management. This patient will be admitted as inpatient and will require greater than 2 midnights of hospital time to treat sepsis and metabolic encephalopathy due to sepsis.
[2023-01-24] MEDS: TRAMADOL 50 MG TABLET PO ×3 (00:01→09:30)
[2023-01-24] MEDS: PIPERACILLIN/TAZO 4.5 GM in SODIUM CHLORIDE 0.9% 100 ML IV (01:17)
[2023-01-24 03:00] VITALS: BP 126/84; PULSE 75; RESP 16; TEMP 36.4; O2SAT 98
[2023-01-24 05:21] LABS: Hematocrit 26.2 % (36-46); Hemoglobin 8.9 g/dL (12.0-16.0); Mean Corpuscular Hemoglobin 38.2 PG (26-34); Mean Corpuscular Volume 112.3 fL (80-100); Platelet Count 78 X10^3/uL (150-400); Red Blood Cell Count 2.33 X10^6/uL (4.0-5.2); Red Cell Distribution Width 18.6 % (11.6-14.8); White Blood Cell Count 19.4 X10^3/uL (4.5-11.0)
[2023-01-24 05:25] LABS: Add Manual Diff / Slide Review YES
[2023-01-24 05:37] LABS: Anisocytosis 1+; Macrocytosis 2+; Neutrophils Absolute Manual 13580 /uL (3000-5900); Platelet Estimate Decreased on smear; Target Cells 2+; Total Cells Counted 100
[2023-01-24 05:38] LABS: Alanine Aminotransferase 20 IU/L (<35); Albumin Globulin Ratio 0.8 (1.0-2.8); Alkaline Phosphatase 163 U/L (38-126); Aspartate Aminotransferase 23 IU/L (14-36); BUN Creatinine Ratio 20.3 (6-22); Bilirubin Total 1.2 mg/dL (0.2-1.3); Blood Urea Nitrogen 12 mg/dL (7-17); Calcium 7.6 mg/dL (8.4-10.2); Carbon Dioxide 27 mmol/L (22-32); Chloride 107 mmol/L (98-107); Estimated Glomerular Filt Rate > 60 mL/min (>60); Globulin 2.6 g/dL (1.7-4.1); Glucose 112 mg/dL (70-100); HEMOLYSIS < 15 (0-50); Phosphorous 2.7 mg/dL (2.5-4.5); Sodium 137 mmol/L (137-145); Total Protein 4.6 g/dL (6.3-8.2)
[2023-01-24 05:39] LABS: Alanine Aminotransferase 20 IU/L (<35); Albumin 1.9 g/dL (3.5-5.0); Albumin Globulin Ratio 0.7 (1.0-2.8); Alkaline Phosphatase 170 U/L (38-126); Aspartate Aminotransferase 25 IU/L (14-36); Bilirubin Total 1.3 mg/dL (0.2-1.3); Bilirubin Unconjugated 0.6 mg/dL (0.0-1.1); Globulin 2.6 g/dL (1.7-4.1); HEMOLYSIS < 15 (0-50); Lipase 32 U/L (23-300); Total Protein 4.5 g/dL (6.3-8.2)
[2023-01-24 07:00] VITALS: BP 122/84; PULSE 80; RESP 16; TEMP 36.5; O2SAT 96
[2023-01-24] MEDS: POTASSIUM CHLORIDE 20 MEQ TAB 40 MEQ PO ×2 (08:51→14:01)
[2023-01-24] MEDS: ENOXAPARIN 30 MG/0.3 ML SYRINGE SUBCUT (08:51)
[2023-01-24] MEDS: PIPERACILLIN/TAZO 3.375 GM in SODIUM CHLORIDE 0.9% 100 ML IV ×2 (08:53→18:01)
[2023-01-24 11:00] VITALS: BP 127/91; PULSE 84; RESP 16; TEMP 36.9; O2SAT 97
--- NOTE | 2023-01-24 11:00 | PM.PN.1 ---
Subjective Subjective Interval history: Patient feeling better with more energy. Blood and urine cultures still pending. No new complaints. Exam Vital Signs (past 8 hours): - 01/24/23 07:00 Temperature 97.7 F Pulse Rate 80 Respiratory Rate 16 Blood Pressure 122/84 Pulse Oximetry 96 Oxygen Delivery Method Room Air Oxygen Flow Rate 0 Narrative Exam Narrative: GENERAL: Alert thin, in no acute medical distress HEENT: Head atraumatic,EOMI, pupils reactive, face symmetric, moist mucous membranes CARDIOVASCULAR: Regular rate and rhythm without murmurs, rubs or gallops. RESPIRATORY: Breath sounds equal bilaterally, no wheezes rales or rhonchi. ABDOMEN: Soft, nontender. Normoactive bowel sounds. EXTREMITIES: Normal range of motion, no clubbing or edema. Neurovascularly intact NEUROLOGICAL: Alert and oriented x3 SKIN: Warm, dry, no laceration, no petechiae, no rashes or lesions. Objective Labs 01/24/23 05:09 01/24/23 05:09 Labs: Laboratory Results - last 24 hr 01/23/23 01/23/23 01/23/23 12:45 12:50 13:17 WBC 15.3 H RBC 2.83 L Hgb 10.8 L Hct 31.8 L MCV 112.1 H MCH 38.3 H MCHC 34.1 RDW 18.5 H Plt Count 108 L Neut % (Auto) Not Reportable Lymph % (Auto) Not Reportable Angelina % (Auto) Not Reportable Eos % (Auto) Not Reportable Baso % (Auto) Not Reportable Lymph # (Auto) Not Reportable Angelina # (Auto) Not Reportable Baso # (Auto) Not Reportable Total Counted 100 Seg Neutrophils % 83.0 H Band Neutrophils % 2.0 L Lymphocytes % (Manual) 12.0 L Monocytes % (Manual) 3.0 Metamyelocytes % Neutrophils # (Manual) 07008 H Platelet Estimate RBC Morphology See below Anisocytosis 1+ H Macrocytosis 2+ H Target Cells 2+ H Sodium 135 L Potassium 3.0 L Chloride 101 Carbon Dioxide 30 BUN 13 Creatinine 0.89 Estimated GFR > 60 BUN/Creatinine Ratio 14.6 Glucose 105 H Lactate 2.6 H Calcium 8.3 L Phosphorus Magnesium 2.1 Total Bilirubin 1.3 Conjugated Bilirubin Unconjugated Bilirubin AST 43 H ALT 28 Alkaline Phosphatase 289 H Ammonia Cancelled 25 Total Protein 5.3 L Albumin 2.3 L Globulin 3.0 Albumin/Globulin Ratio 0.8 L Lipase 32 Procalcitonin 30.6 H TSH 0.841 Urine Color Urine Appearance Urine pH Ur Specific [place] Urine Protein Urine Glucose (UA) Urine Ketones Urine Occult Blood Urine Nitrate Urine Bilirubin Urine Urobilinogen Ur Leukocyte Esterase Urine RBC Urine WBC Ur Squamous Epith Cells Urine Bacteria Ur Culture Indicated? Salicylates < 1.0 U Opiates 300ng/mL cut Ur Oxycodone Screen Urine Methadone Screen Acetaminophen < 10 Ur Barbiturates Screen U Tricyclic Antidepress Ur Phencyclidine Scrn Ur Amphetamines Screen U Methamphetamines Scrn Ur MDMA Scrn (Ecstasy) U Benzodiazepines Scrn Urine Cocaine Screen U Marijuana (THC) Screen Ethyl Alcohol < 10 Chlamy pneumoniae PCR Not detected Adenovirus (PCR) Not detected B.parapertussis DNA PCR Not detected Coronavirus OC43 (PCR) Not detected Coronavirus HKU1 (PCR) Not detected Coronavirus 229E (PCR) Not detected SARS-CoV-2 (PCR) Not detected Coronavirus NL63 (PCR) Not detected Human Metapneumovir PCR Not detected Influenza Type A (PCR) Not detected Influenza Type B (PCR) Not detected M. pneumoniae (PCR) Not detected Parainfluenza 1 (PCR) Not detected Parainfluenza 2 (PCR) Not detected Parainfluenza 3 (PCR) Not detected Parainfluenza 4 (PCR) Not detected RSV (PCR) Not detected Entero/Rhino (PCR) Not detected Blood Type O Negative Antibody Screen Negative 01/23/23 01/23/23 01/24/23 14:55 15:10 05:06 WBC RBC Hgb Hct MCV MCH MCHC RDW Plt Count Neut % (Auto) Lymph % (Auto) Angelina % (Auto) Eos % (Auto) Baso % (Auto) Lymph # (Auto) Angelina # (Auto) Baso # (Auto) Total Counted Seg Neutrophils % Band Neutrophils % Lymphocytes % (Manual) Monocytes % (Manual) Metamyelocytes % Neutrophils # (Manual) Platelet Estimate RBC Morphology Anisocytosis Macrocytosis Target Cells Sodium Potassium Chloride Carbon Dioxide BUN Creatinine Estimated GFR BUN/Creatinine Ratio Glucose Lactate 1.6 Calcium Phosphorus Magnesium 2.0 Total Bilirubin Conjugated Bilirubin Unconjugated Bilirubin AST ALT Alkaline Phosphatase Ammonia Total Protein Albumin Globulin Albumin/Globulin Ratio Lipase Procalcitonin TSH Urine Color Yellow Urine Appearance Clear Urine pH 6.0 Ur Specific [place] <=1.005 Urine Protein Negative Urine Glucose (UA) Negative Urine Ketones Negative Urine Occult Blood Negative Urine Nitrate Negative Urine Bilirubin Negative Urine Urobilinogen 0.2 Ur Leukocyte Esterase Negative Urine RBC None seen Urine WBC None seen Ur Squamous Epith Cells 1-5 /hpf Urine Bacteria Occasional (0-1) Ur Culture Indicated? Cult not indicated Salicylates U Opiates 300ng/mL cut Negative Ur Oxycodone Screen Negative Urine Methadone Screen Negative Acetaminophen Ur Barbiturates Screen Negative U Tricyclic Antidepress Negative Ur Phencyclidine Scrn Negative Ur Amphetamines Screen Negative U Methamphetamines Scrn Negative Ur MDMA Scrn (Ecstasy) Negative U Benzodiazepines Scrn Negative Urine Cocaine Screen Negative U Marijuana (THC) Screen Positive H Ethyl Alcohol Chlamy pneumoniae PCR Adenovirus (PCR) B.parapertussis DNA PCR Coronavirus OC43 (PCR) Coronavirus HKU1 (PCR) Coronavirus 229E (PCR) SARS-CoV-2 (PCR) Coronavirus NL63 (PCR) Human Metapneumovir PCR Influenza Type A (PCR) Influenza Type B (PCR) M. pneumoniae (PCR) Parainfluenza 1 (PCR) Parainfluenza 2 (PCR) Parainfluenza 3 (PCR) Parainfluenza 4 (PCR) RSV (PCR) Entero/Rhino (PCR) Blood Type Antibody Screen 01/24/23 01/24/23 01/24/23 05:09 05:09 05:09 WBC 19.4 H RBC 2.33 L Hgb 8.9 L Hct 26.2 L MCV 112.3 H MCH 38.2 H MCHC 34.0 RDW 18.6 H Plt Count 78 L Neut % (Auto) Not Reportable Lymph % (Auto) Not Reportable Angelina % (Auto) Not Reportable Eos % (Auto) Not Reportable Baso % (Auto) Not Reportable Lymph # (Auto) Not Reportable Angelina # (Auto) Not Reportable Baso # (Auto) Not Reportable Total Counted 100 Seg Neutrophils % 70.0 Band Neutrophils % Lymphocytes % (Manual) 24.0 L Monocytes % (Manual) 5.0 Metamyelocytes % 1.0 H Neutrophils # (Manual) 34505 H Platelet Estimate Decreased on smear RBC Morphology See below Anisocytosis 1+ H Macrocytosis 2+ H Target Cells 2+ H Sodium 137 Potassium 3.0 L Chloride 107 Carbon Dioxide 27 BUN 12 Creatinine 0.59 Estimated GFR > 60 BUN/Creatinine Ratio 20.3 Glucose 112 H Lactate Calcium 7.6 L Phosphorus 2.7 Magnesium 2.0 Total Bilirubin 1.2 1.3 Conjugated Bilirubin 0.0 Unconjugated Bilirubin 0.6 AST 23 25 ALT 20 Alkaline Phosphatase Ammonia Total Protein Albumin Globulin Albumin/Globulin Ratio Lipase Procalcitonin TSH Urine Color Urine Appearance Urine pH Ur Specific [place] Urine Protein Urine Glucose (UA) Urine Ketones Urine Occult Blood Urine Nitrate Urine Bilirubin Urine Urobilinogen Ur Leukocyte Esterase Urine RBC Urine WBC Ur Squamous Epith Cells Urine Bacteria Ur Culture Indicated? Salicylates U Opiates 300ng/mL cut Ur Oxycodone Screen Urine Methadone Screen Acetaminophen Ur Barbiturates Screen U Tricyclic Antidepress Ur Phencyclidine Scrn Ur Amphetamines Screen U Methamphetamines Scrn Ur MDMA Scrn (Ecstasy) U Benzodiazepines Scrn Urine Cocaine Screen U Marijuana (THC) Screen Ethyl Alcohol Chlamy pneumoniae PCR Adenovirus (PCR) B.parapertussis DNA PCR Coronavirus OC43 (PCR) Coronavirus HKU1 (PCR) Coronavirus 229E (PCR) SARS-CoV-2 (PCR) Coronavirus NL63 (PCR) Human Metapneumovir PCR Influenza Type A (PCR) Influenza Type B (PCR) M. pneumoniae (PCR) Parainfluenza 1 (PCR) Parainfluenza 2 (PCR) Parainfluenza 3 (PCR) Parainfluenza 4 (PCR) RSV (PCR) Entero/Rhino (PCR) Blood Type Antibody Screen 01/24/23 01/24/23 01/24/23 05:09 05:09 05:09 WBC RBC Hgb Hct MCV MCH MCHC RDW Plt Count Neut % (Auto) Lymph % (Auto) Angelina % (Auto) Eos % (Auto) Baso % (Auto) Lymph # (Auto) Angelina # (Auto) Baso # (Auto) Total Counted Seg Neutrophils % Band Neutrophils % Lymphocytes % (Manual) Monocytes % (Manual) Metamyelocytes % Neutrophils # (Manual) Platelet Estimate RBC Morphology Anisocytosis Macrocytosis Target Cells Sodium Potassium Chloride Carbon Dioxide BUN Creatinine Estimated GFR BUN/Creatinine Ratio Glucose Lactate Calcium Phosphorus Magnesium Total Bilirubin Conjugated Bilirubin Unconjugated Bilirubin AST ALT 20 Alkaline Phosphatase 163 H 170 H Ammonia Total Protein 4.6 L 4.5 L Albumin 2.0 L Globulin Albumin/Globulin Ratio Lipase Procalcitonin TSH Urine Color Urine Appearance Urine pH Ur Specific [place] Urine Protein Urine Glucose (UA) Urine Ketones Urine Occult Blood Urine Nitrate Urine Bilirubin Urine Urobilinogen Ur Leukocyte Esterase Urine RBC Urine WBC Ur Squamous Epith Cells Urine Bacteria Ur Culture Indicated? Salicylates U Opiates 300ng/mL cut Ur Oxycodone Screen Urine Methadone Screen Acetaminophen Ur Barbiturates Screen U Tricyclic Antidepress Ur Phencyclidine Scrn Ur Amphetamines Screen U Methamphetamines Scrn Ur MDMA Scrn (Ecstasy) U Benzodiazepines Scrn Urine Cocaine Screen U Marijuana (THC) Screen Ethyl Alcohol Chlamy pneumoniae PCR Adenovirus (PCR) B.parapertussis DNA PCR Coronavirus OC43 (PCR) Coronavirus HKU1 (PCR) Coronavirus 229E (PCR) SARS-CoV-2 (PCR) Coronavirus NL63 (PCR) Human Metapneumovir PCR Influenza Type A (PCR) Influenza Type B (PCR) M. pneumoniae (PCR) Parainfluenza 1 (PCR) Parainfluenza 2 (PCR) Parainfluenza 3 (PCR) Parainfluenza 4 (PCR) RSV (PCR) Entero/Rhino (PCR) Blood Type Antibody Screen 01/24/23 01/24/23 01/24/23 05:09 05:09 05:09 WBC RBC Hgb Hct MCV MCH MCHC RDW Plt Count Neut % (Auto) Lymph % (Auto) Angelina % (Auto) Eos % (Auto) Baso % (Auto) Lymph # (Auto) Angelina # (Auto) Baso # (Auto) Total Counted Seg Neutrophils % Band Neutrophils % Lymphocytes % (Manual) Monocytes % (Manual) Metamyelocytes % Neutrophils # (Manual) Platelet Estimate RBC Morphology Anisocytosis Macrocytosis Target Cells Sodium Potassium Chloride Carbon Dioxide BUN Creatinine Estimated GFR BUN/Creatinine Ratio Glucose Lactate Calcium Phosphorus Magnesium Total Bilirubin Conjugated Bilirubin Unconjugated Bilirubin AST ALT Alkaline Phosphatase Ammonia Total Protein Albumin 1.9 L Globulin 2.6 2.6 Albumin/Globulin Ratio 0.8 L 0.7 L Lipase 32 Procalcitonin 16.0 H TSH Urine Color Urine Appearance Urine pH Ur Specific [place] Urine Protein Urine Glucose (UA) Urine Ketones Urine Occult Blood Urine Nitrate Urine Bilirubin Urine Urobilinogen Ur Leukocyte Esterase Urine RBC Urine WBC Ur Squamous Epith Cells Urine Bacteria Ur Culture Indicated? Salicylates U Opiates 300ng/mL cut Ur Oxycodone Screen Urine Methadone Screen Acetaminophen Ur Barbiturates Screen U Tricyclic Antidepress Ur Phencyclidine Scrn Ur Amphetamines Screen U Methamphetamines Scrn Ur MDMA Scrn (Ecstasy) U Benzodiazepines Scrn Urine Cocaine Screen U Marijuana (THC) Screen Ethyl Alcohol Chlamy pneumoniae PCR Adenovirus (PCR) B.parapertussis DNA PCR Coronavirus OC43 (PCR) Coronavirus HKU1 (PCR) Coronavirus 229E (PCR) SARS-CoV-2 (PCR) Coronavirus NL63 (PCR) Human Metapneumovir PCR Influenza Type A (PCR) Influenza Type B (PCR) M. pneumoniae (PCR) Parainfluenza 1 (PCR) Parainfluenza 2 (PCR) Parainfluenza 3 (PCR) Parainfluenza 4 (PCR) RSV (PCR) Entero/Rhino (PCR) Blood Type Antibody Screen PFSH Social History household members: children Smoking Status: Current every day smoker alcohol intake: former Assessment & Plan Assessment & Plan narrative: # Sepsis, meets criteria POA, acute - blood cultures, treat with IV Zosyn since most likely cause is urinary tract infection - urine and blood cultures ordered, results still pending - provide IV fluids - monitor lab - fever consistent with sepsis, has subsided today - hypotension consistent with sepsis, has stabilized - leukocytosis consistent with sepsis, still presistent - procalcitonin of 30.6 consistent with sepsis, improved today at 16.0 #metabolic encephalopathy POA, acute -secondary to sepsis, follow clinically, essentially resolved # chronic pancreatitis with pancreatitc cysts POA, chronic - monitor lipase and patient clinically, lipase normal today # Biliary stent POA, chronic needs followup with GI on discharge # History of alcohol abuse POA, chronic 3 years sober # recent need for blood transfusion POA, chronic continue to monitor Hb, decreased to 8.9 today, will follow # thrombocytopenia POA, increased today with platelets of 78, continue to monitor # concern for malnutrition POA, chronic -consult dietitian, measure prealbumin -begin thiamine 100 mg daily, mutivit, vit D CODE:Full code DVT: enoxaparin 30 mg Surrogate decision maker: shu Interiano
[2023-01-24] MEDS: THIAMINE 100 MG TABLET PO (13:45)
[2023-01-24] MEDS: MULTIVITAMIN 1 TABLET 1 TAB PO (13:45)
[2023-01-24] MEDS: CHOLECALCIFEROL (VITAMIN D3) 1,000 UNIT TABLET 1000 UNIT PO (13:45)
[2023-01-24] MEDS: NICOTINE 21 MG PATCH TOP (14:01)
--- NOTE | 2023-01-24 14:11 | CM.DANOTE ---
Patient is a 47 yo female who was admitted on 01/23/23 for Weakness. Pt has [facility] for insurance and her PCP is not listed. EMR was reviewed. Per MD, pt with a remote hx of ETOH and pancreatic cysts with GI stent placed and admitted for sepsis. SW met bedside with pt and explained role and pt looks older than stated age due to her life experiences and multiple medical comorbidities. Pt states she lives in an upstairs apt in [place] and her adult son who is about 25 lives with her and is the only one in the household working now to help pay for rent but he is an alcoholic himself and this has been challenging for the pt but she cannot remove him as he is the financial contributor at this time. Pt also has two school aged children at home that are struggling with school and behaviors. Pt states the stress of her medical needs and then her family have increased her worries. Pt states she is working closely with her children's school counselor to help get them into the [facility] wraparound program through [facility] as well as assisting pt with attempting to qualify for [facility] CGs as pt struggles with her ambulation, stairs, cadd drafter, etc.. Pt very tearful and denies any of her own mental health or chronic medical condition support groups or counselors but is hopeful for [facility] program so that she can have a Parent staff development nurse working closely with her. Pt states she has no other local family as both of her parents and her brother have all . Pt denies that the children's father is involved at all. Pt does state she has another local son who is 28 yo who is her biggest support but he has a new family himself and working bonding equipment operator with a 2yo child himself. Plan: SW to follow closely for pt's medical progress and POC towards assisting with d/c planning needs and r/o HH but pt's insurance might be a barrier. ZINA Ocampo Discharge Planning/Care Management CM Discharge Assessment Start: 01/24/23 14:06 Freq: Status: Active Protocol: Document 01/24/23 14:07 BF (Rec: 01/24/23 14:11 [id number]) Discharge Planning Assessment Assigned Meter Record Clerk ZINA Farley DPOA/Assigned Designee Name none Advance Directives? No History Provided By Patient,Medical Record Has Patient been admitted in last 30 No days? Prior Living Arrangements Apartment/Condo Household Members children Comment 25 yo son and two younger children in school Type of transporation used prior to Drives own vehicle admit Independent with ADL's Yes Is patient alert and oriented? Yes Needs Assistance With Home Chores / Shopping Caregiver for Another Yes: 2 school aged children at home Barriers to Discharge No Discharge Plan Home with Home Health Transportation Arrangement Likely son to transport back Additional Comment Pending progress and needs Whiteboard Updated in Patient Room with Yes name and ext. # of Meter Record Clerk Review Status In Process Please Provide Date Initial DC 01/24/23 Assessment Was Performed Next Review Type Continued Stay Review
[2023-01-24 15:00] VITALS: BP 132/107; PULSE 71; RESP 16; TEMP 36.8; O2SAT 94
[2023-01-24] MEDS: NALOXONE 0.4 MG/ML VIAL IV (15:33)
--- NOTE | 2023-01-24 15:46 | PC.NURSE ---
Addendum entered by Candace William R.N. 01/24/23 18:47: 1740 pt only answering to loud voice and touch- md notified orders rec'd, cbg 99, labs ct head neg vss Original Note: pt has become more sleepy over the last couple hours unable to hold conversation or answer yes no questions-falling asleep with assist to bathroom and just sitting up in bed, assist of 2 with walker back to bed Dr. strauss aware of alt mental changes .orders rec'd. Narcan given pt now more arouseable ask if she took any of her own meds and she said no call light within reach and bed alarmed vss resp 16 ra 98%.
--- NOTE | 2023-01-24 18:00 | DI.CT.S_ITS ---
PROCEDURE: CT HEAD/BRAIN WO CON INDICATIONS: acute LOC change, severe HTN TECHNIQUE: Noncontrast 4.5 mm thick angled axial sections acquired from the foramen magnum to the vertex, with coronal and sagittal reformats. For radiation dose reduction, the following was used: automated exposure control, adjustment of mA and/or kV according to patient size. COMPARISON: [facility], CT, CT HEAD/BRAIN WO CON, 01/23/2023, 13:06. FINDINGS: Image quality: Excellent. CSF spaces: Basal cisterns are patent. There is a mild arachnoid cyst seen involving the posterior aspect of the posterior fossa, which is stable. Ventricles are normal in size and shape. Brain: No midline shift. No intracranial masses or hemorrhage. Baltazar-white matter interface is normal. Skull and face: Calvarium and visualized facial bones are intact, without suspicious lesions. Sinuses: Visualized sinuses and mastoids are clear. IMPRESSION: Normal intracranial study, stable from prior. No acute intracranial hemorrhage is seen. Dictated by: Rafal Meza M.D. on 01/24/2023 at 17:24 Approved by: Rafal Meza M.D. on 01/24/2023 at 17:25
[2023-01-24 18:03] LABS: UR Morphine/Opiate cutoff 300 Negative (Negative); Ur Creatinine Normal (Normal); Ur Specific Gravity Normal (Normal); Urine Amphetamines Negative (Negative); Urine Barbiturates Negative (Negative); Urine Benzodiazepines Negative (Negative); Urine Cocaine Negative (Negative); Urine MDMA Negative (Negative); Urine Methadone Negative (Negative); Urine Methamphetamines Negative (Negative); Urine Oxycodone Negative (Negative); Urine Phencyclidine Negative (Negative); Urine Tetrahydrocannabinol Positive (Negative); Urine Tricyclic Antidepressant Negative (Negative); Urine pH Normal (Normal)
[2023-01-24 18:19] LABS: Hematocrit 26.6 % (36-46); Hemoglobin 8.9 g/dL (12.0-16.0); Mean Corpuscular HGB Conc 33.6 % (30-36); Mean Corpuscular Hemoglobin 37.4 PG (26-34); Mean Corpuscular Volume 111.6 fL (80-100); Platelet Count 81 X10^3/uL (150-400); Red Blood Cell Count 2.39 X10^6/uL (4.0-5.2); Red Cell Distribution Width 18.5 % (11.6-14.8); White Blood Cell Count 15.9 X10^3/uL (4.5-11.0)
[2023-01-24 18:22] LABS: Add Manual Diff / Slide Review YES
[2023-01-24 18:31] LABS: Carbon Dioxide 30 mmol/L (22-32); Chloride 105 mmol/L (98-107); HEMOLYSIS < 15 (0-50); Potassium 3.5 mmol/L (3.4-5.1); Sodium 136 mmol/L (137-145)
[2023-01-24 18:32] LABS: Lactate (Lactic Acid) 1.1 mmol/L (0.7-2.1)
[2023-01-24 18:45] LABS: Neutrophils Absolute Manual 12243 /uL (3000-5900); Total Cells Counted 100
[2023-01-24 18:47] LABS: Anisocytosis 1+; Macrocytosis 2+; Target Cells 2+
[2023-01-24 18:48] LABS: Procalcitonin 8.97 ng/mL (<0.5)
[2023-01-24] MEDS: ALBUTEROL 2.5 MG/3 ML NEB (ADULT) INH (19:15)
[2023-01-24 19:19] VITALS: O2SAT 97
[2023-01-24 19:45] VITALS: BP 104/66; PULSE 93; RESP 16; TEMP 36.6; O2SAT 92
[2023-01-24] MEDS: AMITRIPTYLINE 25 MG TABLET PO (22:48)
[2023-01-24] MEDS: MIRTAZAPINE 15 MG TABLET PO (22:49)
[2023-01-24] MEDS: SUCRALFATE 1 GM TABLET PO (22:50)
[2023-01-25] VITALS (7 sets, daily range): BP systolic 128–149; BP diastolic 78–92; PULSE 82–90; RESP 16–20; TEMP 36.9–37.2; O2SAT 96–98
[2023-01-25] MEDS: PIPERACILLIN/TAZO 3.375 GM in SODIUM CHLORIDE 0.9% 100 ML IV ×3 (01:02→17:18)
[2023-01-25 02:02] LABS: Acinetobacter calcoa-baumannii Not Detected (Not Detect); Bacteroides fragilis Not Detected (Not Detect); CTX-M Resistance Not Detected (Not Detect); Candida albicans Not Detected (Not Detect); Candida auris Not Detected (Not Detect); Candida glabrata Not Detected (Not Detect); Candida krusei Not Detected (Not Detect); Candida parapsilosis Not Detected (Not Detect); Candida tropicalis Not Detected (Not Detect); Cryptococcus neoformans/gatti Not Detected (Not Detect); Enterobacter cloacae complex Not Detected (Not Detect); Enterobacterales Detected (Not Detect); Enterococcus faecalis Not Detected (Not Detect); Enterococcus faecium Not Detected (Not Detect); Haemophilus influenzae Not Detected (Not Detect); IMP Resistance Not Detected (Not Detect); KPC Resistance Not Detected (Not Detect); Klebsiella aerogenes Not Detected (Not Detect); Listeria monocytogenes Not Detected (Not Detect); NDM Resistance Not Detected (Not Detect); Neisseria meningitidis Not Detected (Not Detect); OXA-48-like Resistance Not Detected (Not Detect); Proteus species Not Detected (Not Detect); Pseudomonas aeruginosa Not Detected (Not Detect); Salmonella species Not Detected (Not Detect); Serratia marcescens Not Detected (Not Detect); Staphylococcus epidermidis Not Detected (Not Detect); Staphylococcus lugdunensis Not Detected (Not Detect); Staphylococcus species Not Detected (Not Detect); Stenotrophomonas maltophilia Not Detected (Not Detect); Streptococcus agalactiae (Gr B Not Detected (Not Detect); Streptococcus pneumonia Not Detected (Not Detect); Streptococcus pyogenes (Gr A) Not Detected (Not Detect); Streptococcus species Not Detected (Not Detect); VIM Resistance Not Detected (Not Detect); mcr-1 Resistance Not Detected (Not Detect)
[2023-01-25] MEDS: TRAMADOL 50 MG TABLET PO ×3 (03:13→20:34)
[2023-01-25 05:22] LABS: Hematocrit 25.6 % (36-46); Hemoglobin 8.7 g/dL (12.0-16.0); Mean Corpuscular HGB Conc 33.8 % (30-36); Mean Corpuscular Hemoglobin 37.9 PG (26-34); Mean Corpuscular Volume 112.3 fL (80-100); Platelet Count 89 X10^3/uL (150-400); Red Blood Cell Count 2.28 X10^6/uL (4.0-5.2); White Blood Cell Count 14.1 X10^3/uL (4.5-11.0)
[2023-01-25 05:33] LABS: Add Manual Diff / Slide Review YES
[2023-01-25 05:36] LABS: Alanine Aminotransferase 19 IU/L (<35); Albumin 1.9 g/dL (3.5-5.0); Albumin Globulin Ratio 0.7 (1.0-2.8); Alkaline Phosphatase 165 U/L (38-126); Aspartate Aminotransferase 27 IU/L (14-36); BUN Creatinine Ratio 25.6 (6-22); Bilirubin Total 1.5 mg/dL (0.2-1.3); Blood Urea Nitrogen 11 mg/dL (7-17); Calcium 7.9 mg/dL (8.4-10.2); Carbon Dioxide 29 mmol/L (22-32); Chloride 109 mmol/L (98-107); Estimated Glomerular Filt Rate > 60 mL/min (>60); Globulin 2.7 g/dL (1.7-4.1); Glucose 108 mg/dL (70-100); HEMOLYSIS < 15 (0-50); Potassium 3.8 mmol/L (3.4-5.1); Sodium 137 mmol/L (137-145); Total Protein 4.6 g/dL (6.3-8.2)
[2023-01-25 05:44] LABS: Prealbumin 9.2 mg/dL (17.6-36.0)
[2023-01-25 05:51] LABS: Anisocytosis 2+; Macrocytosis 2+; Neutrophils Absolute Manual 8883 /uL (3000-5900); Platelet Estimate Decreased on smear; Target Cells 2+; Total Cells Counted 100
[2023-01-25 05:52] LABS: Procalcitonin 6.24 ng/mL (<0.5)
--- NOTE | 2023-01-25 06:21 | PC.NURSE ---
shift nurse manager RN note Pt transferred from ACU via bed and moved over to new bed via slide board, rousable to verbal and physical stimuli, PERRL 4mm, oriented to self and city, vague on situation and year, drowsy, generalized weakness, VSS, afebrile, PPPx4, no edema, SR 80-90s, lungs clear and decreased to bases, O2 sats >92% on RA, abd soft with BS, up to bathroom with 1 assist, ambulation slightly unsteady, BM loose, voiding clear yellow urine, skin warm, dry and flaky, periph IV sites x2 patent, c/o back pain, tramadol given with mod effect, pt slept most of the night, used call sandra appropriately, bed alarm on and pt reminded to call for assistance, continue to monitor
[2023-01-25] MEDS: ALBUTEROL 2.5 MG/3 ML NEB (ADULT) INH ×2 (07:44→13:09)
[2023-01-25] MEDS: NICOTINE 21 MG PATCH TOP (08:48)
[2023-01-25] MEDS: SUCRALFATE 1 GM TABLET PO ×3 (08:49→20:33)
[2023-01-25] MEDS: LIPASE/PROTEASE/AMYLASE 5/17/24 CAP 3 CAP PO ×3 (08:49→17:15)
[2023-01-25] MEDS: MULTIVITAMIN 1 TABLET 1 TAB PO (08:50)
[2023-01-25] MEDS: CHOLECALCIFEROL (VITAMIN D3) 1,000 UNIT TABLET 1000 UNIT PO (08:50)
[2023-01-25] MEDS: POTASSIUM CHLORIDE 10 MEQ TAB PO (08:50)
[2023-01-25] MEDS: VENLAFAXINE ER 75 MG CAP PO (08:50)
[2023-01-25] MEDS: PANTOPRAZOLE DR 40 MG TABLET PO (08:50)
[2023-01-25] MEDS: THIAMINE 100 MG TABLET PO (08:50)
[2023-01-25] MEDS: ENOXAPARIN 30 MG/0.3 ML SYRINGE SUBCUT (08:51)
[2023-01-25] MEDS: ONDANSETRON 4 MG/2 ML INJ IV (10:02)
[2023-01-25] MEDS: ACETAMINOPHEN 325 MG TABLET 975 MG PO (10:03)
[2023-01-25] MEDS: IBUPROFEN 400 MG TABLET 800 MG PO (10:03)
--- NOTE | 2023-01-25 11:08 | CM.DPC ---
Addendum entered by ZINA Ocampo 01/25/23 15:12: ADD: Return call from Michel from [facility] GI stating Dr. Reveles feels pt's source of infection likely from her stent that has not been replaced in the typical time due to pt postponing and feels ERCP/EUS needed at this time and requesting transfer and treat and return. Hospitalist and Dr. Reveles spoke and confirmed POC. home health care provider helped to set up BLS transport for tomorrow [phone] to [facility] and then pt will return after procedure for ongoing medical care. BF Original Note: DCP Cont: Per MD, pt making slow progress but quite fatigued and needing increased assist with mobility and continue with IV-Abx and medical care and not yet medically stable to d/c yet today. Pt has scheduled ERCP with GI MD Dr. Reveles at [facility] tomorrow 01/26/23 and MD does not anticipate pt will be medically stable to d/c by tomorrow and request SW help with determining if pt should have a transfer and treat vs reschedule. SW called [facility] GI clinic and spoke to JEANNE Pearson and provided information and faxed clinicals to review and she will contact Dr. Reveles to determine if the scheduled ERCP and EUS should be kept for tomorrow or rescheduled and will then call SW back to update on recommendations. SW updated home health care provider and MD. Plan: SW to follow for ongoing progress for patient and determination about ERCP/EUS and likely need for PT eval tomorrow as pt below baseline and needing 1-2PA with mobility. ZINA Ocampo
--- NOTE | 2023-01-25 14:26 | P.PN_ITS ---
Subjective Subjective Date Patient Seen: 01/25/23 Interval history: Starting to feel much better, still getting some twitching of her hands when she tries to do something with them such s holding a cup. Still tired and weak. Exam Vital Signs (past 8 hours): - 01/25/23 07:44 01/25/23 09:00 01/25/23 13:09 Temperature 99.0 F Pulse Rate 86 89 82 Respiratory Rate 16 20 16 Blood Pressure 149/86 H Pulse Oximetry 98 98 98 Oxygen Delivery Method Room Air Room Air Oxygen Flow Rate 0 0 0 Fraction of Inspired Oxygen 21 21 Fraction of Inspired Oxygen 21 SaO2/FiO2 Ratio 466 Oxygen Delivery Method Room Air Oxygen Flow Rate 0 Narrative Exam Narrative: GENERAL: Alert thin pale 47-year-old female, very cachetic HEENT: Head atraumatic,EOMI, pupils reactive, face symmetric, moist mucous membranes CARDIOVASCULAR: Regular rate and rhythm without murmurs, rubs or gallops. RESPIRATORY: Breath sounds equal bilaterally, no wheezes rales or rhonchi. ABDOMEN: Soft, nontender. Normoactive bowel sounds all 4 quadrants. No guarding or rebound. EXTREMITIES: Normal range of motion, no clubbing or edema. Neurovascularly intact NEUROLOGICAL: Alert and oriented x3, tremors shaking twitching with some hand movements reported by patient, moving all extremities, generally weak SKIN: Warm, dry, no laceration, no petechiae, no rashes or lesions. Objective Labs 01/25/23 04:33 01/25/23 04:33 Labs: Laboratory Results - last 24 hr 01/23/23 01/24/23 01/24/23 12:45 17:14 17:55 WBC 15.9 H RBC 2.39 L Hgb 8.9 L Hct 26.6 L MCV 111.6 H MCH 37.4 H MCHC 33.6 RDW 18.5 H Plt Count 81 L Neut % (Auto) Not Reportable Lymph % (Auto) Not Reportable [place] % (Auto) Not Reportable Eos % (Auto) Not Reportable Baso % (Auto) Not Reportable Lymph # (Auto) Not Reportable [place] # (Auto) Not Reportable Baso # (Auto) Not Reportable Total Counted 100 Seg Neutrophils % 77.0 H Lymphocytes % (Manual) 16.0 L Monocytes % (Manual) 5.0 Eosinophils % (Manual) Basophils % (Manual) 2.0 H Metamyelocytes % Neutrophils # (Manual) 06668 H Platelet Estimate RBC Morphology See below Anisocytosis 1+ H Macrocytosis 2+ H Target Cells 2+ H Sodium 136 L Potassium 3.5 Chloride 105 Carbon Dioxide 30 BUN Creatinine Estimated GFR BUN/Creatinine Ratio Glucose Lactate 1.1 Calcium Total Bilirubin AST ALT Alkaline Phosphatase Total Protein Albumin Globulin Albumin/Globulin Ratio Prealbumin Procalcitonin 8.97 H U Opiates 300ng/mL cut Negative Ur Oxycodone Screen Negative Urine Methadone Screen Negative Ur Barbiturates Screen Negative U Tricyclic Antidepress Negative Ur Phencyclidine Scrn Negative Ur Amphetamines Screen Negative U Methamphetamines Scrn Negative Ur MDMA Scrn (Ecstasy) Negative U Benzodiazepines Scrn Negative Urine Cocaine Screen Negative U Marijuana (THC) Screen Positive H A.calcoaceticus-baumannii cmplx PCR Not detected Bacteroides fragilis Not detected Yanni albicans (PCR) Not detected Yanni auris (PCR) Not detected C. glabrata (PCR) Not detected C. krusei (PCR) Not detected C. parapsilosis (PCR) Not detected C. tropicalis (PCR) Not detected C. neoform/gattii (PCR) Not detected Enterobacterales (PCR) Detected E. cloacae complex PCR Not detected Enterococc faecalis PCR Not detected Enterococc faecium PCR Not detected E. coli (PCR) Not detected H. influenzae (PCR) Not detected Klebsiella aerogenes (PCR) Not detected Klebsiella oxytoca PCR Detected Klebsiella pneumoniae Not detected List. monocytogenes PCR Not detected N. meningitidis (PCR) Not detected Proteus species (PCR) Not detected Salmonella spp. (PCR) Not detected Serratia marcescens PCR Not detected Staphylococcus sp PCR Not detected Staph aureus (PCR) Not detected mecA/C & MREJ Resist Gene Not applicable mecA/C-Methicil Resis Gene Not applicable mcr-1 Colistin Res Gene PCR Not detected Staph epidermidis (PCR) Not detected Staph lugdunensis PCR Not detected S. maltophilia (PCR) Not detected Streptococcus sp PCR Not detected Group A Strep (PCR) Not detected Strep agalactiae (PCR) Not detected Strep pneumoniae (PCR) Not detected P. aeruginosa (PCR) Not detected Vidhya/B-Vanco Res Genes Not applicable blaIMP Car res Gene PCR Not detected KPC-Carbap Res Gene PCR Not detected blaNDM Car Res Gene PCR Not detected OXA-48 Carbapenem Resis Gene (PCR) Not detected blaVIM Car Res Gene PCR Not detected CTX-M Gene Resistance (PCR) Not detected 01/25/23 04:33 WBC 14.1 H RBC 2.28 L Hgb 8.7 L Hct 25.6 L MCV 112.3 H MCH 37.9 H MCHC 33.8 RDW 19.0 H Plt Count 89 L Neut % (Auto) Not Reportable Lymph % (Auto) Not Reportable [place] % (Auto) Not Reportable Eos % (Auto) Not Reportable Baso % (Auto) Not Reportable Lymph # (Auto) Not Reportable [place] # (Auto) Not Reportable Baso # (Auto) Not Reportable Total Counted 100 Seg Neutrophils % 63.0 Lymphocytes % (Manual) 30.0 Monocytes % (Manual) 4.0 Eosinophils % (Manual) 2.0 Basophils % (Manual) Metamyelocytes % 1.0 H Neutrophils # (Manual) 8883 H Platelet Estimate Decreased on smear RBC Morphology See below Anisocytosis 2+ H Macrocytosis 2+ H Target Cells 2+ H Sodium 137 Potassium 3.8 Chloride 109 H Carbon Dioxide 29 BUN 11 Creatinine 0.43 L Estimated GFR > 60 BUN/Creatinine Ratio 25.6 H Glucose 108 H Lactate Calcium 7.9 L Total Bilirubin 1.5 H AST 27 ALT 19 Alkaline Phosphatase 165 H Total Protein 4.6 L Albumin 1.9 L Globulin 2.7 Albumin/Globulin Ratio 0.7 L Prealbumin 9.2 L Procalcitonin 6.24 H U Opiates 300ng/mL cut Ur Oxycodone Screen Urine Methadone Screen Ur Barbiturates Screen U Tricyclic Antidepress Ur Phencyclidine Scrn Ur Amphetamines Screen U Methamphetamines Scrn Ur MDMA Scrn (Ecstasy) U Benzodiazepines Scrn Urine Cocaine Screen U Marijuana (THC) Screen A.calcoaceticus-baumannii cmplx PCR Bacteroides fragilis Yanni albicans (PCR) Yanni auris (PCR) C. glabrata (PCR) C. krusei (PCR) C. parapsilosis (PCR) C. tropicalis (PCR) C. neoform/gattii (PCR) Enterobacterales (PCR) E. cloacae complex PCR Enterococc faecalis PCR Enterococc faecium PCR E. coli (PCR) H. influenzae (PCR) Klebsiella aerogenes (PCR) Klebsiella oxytoca PCR Klebsiella pneumoniae List. monocytogenes PCR N. meningitidis (PCR) Proteus species (PCR) Salmonella spp. (PCR) Serratia marcescens PCR Staphylococcus sp PCR Staph aureus (PCR) mecA/C & MREJ Resist Gene mecA/C-Methicil Resis Gene mcr-1 [place]in Res Gene PCR Staph epidermidis (PCR) Staph lugdunensis PCR S. maltophilia (PCR) Streptococcus sp PCR Group A Strep (PCR) Strep agalactiae (PCR) Strep pneumoniae (PCR) P. aeruginosa (PCR) Vidhya/B-Vanco Res Genes blaIMP Car res Gene PCR KPC-Carbap Res Gene PCR blaNDM Car Res Gene PCR OXA-48 Carbapenem Resis Gene (PCR) blaVIM Car Res Gene PCR CTX-M Gene Resistance (PCR) PFSH Social History household members: children Smoking Status: Current every day smoker alcohol intake: former Assessment & Plan Assessment & Plan narrative: # Sepsis, meets criteria POA, acute - blood cultures, treat with IV Zosyn since most likely cause is urinary tract infection, blood positive with kleb oxytoca and urine culture positive - pending full identification/sensitivity - urine and blood cultures ordered on admission, will repeat blood culture today - provide IV fluids - monitor lab - fever consistent with sepsis - hypotension consistent with sepsis - leukocytosis consistent with sepsis - procalcitonin of 30.6 consistent with sepsis, improved today to 6.24 #metabolic encephalopathy POA, acute -secondary to sepsis, appears resolved # chronic pancreatitis with pancreatitc cysts POA, chronic - monitor lipase and patient clinically, lipase has been normal # Biliary stent POA, chronic needs followup with GI on discharge, communicating with GI at [place] today # History of alcohol abuse POA, chronic 3 years sober # recent need for blood transfusion POA, chronic continue to monitor Hb, currently stable # urine infection currently positive yeast, will treat with fluconazole CODE:Full code DVT: enoxaparin 30 mg Surrogate decision maker: shu Interiano
[2023-01-25] MEDS: ONDANSETRON 4 MG ODT SL (17:16)
[2023-01-25] MEDS: FLUCONAZOLE 100 MG TABLET 200 MG PO (17:18)
[2023-01-25] MEDS: MIRTAZAPINE 15 MG TABLET PO (20:33)
[2023-01-25] MEDS: AMITRIPTYLINE 25 MG TABLET PO (20:34)
[2023-01-26] VITALS: BP 147/76; PULSE 75; RESP 16; TEMP 37.1; O2SAT 97
[2023-01-26] MEDS: PIPERACILLIN/TAZO 3.375 GM in SODIUM CHLORIDE 0.9% 100 ML IV (01:30)
[2023-01-26 04:00] VITALS: BP 148/91; PULSE 76; RESP 16; TEMP 37; O2SAT 97
[2023-01-26 04:41] LABS: Hematocrit 23.7 % (36-46); Mean Corpuscular HGB Conc 33.8 % (30-36); Mean Corpuscular Hemoglobin 38.2 PG (26-34); Mean Corpuscular Volume 113.2 fL (80-100); Platelet Count 105 X10^3/uL (150-400); Red Blood Cell Count 2.09 X10^6/uL (4.0-5.2); Red Cell Distribution Width 18.7 % (11.6-14.8); White Blood Cell Count 12.3 X10^3/uL (4.5-11.0)
[2023-01-26 04:47] LABS: Add Manual Diff / Slide Review YES
[2023-01-26 04:49] LABS: Alanine Aminotransferase 21 IU/L (<35); Albumin 1.8 g/dL (3.5-5.0); Albumin Globulin Ratio 0.7 (1.0-2.8); Alkaline Phosphatase 141 U/L (38-126); Aspartate Aminotransferase 32 IU/L (14-36); BUN Creatinine Ratio 17.5 (6-22); Bilirubin Total 1.1 mg/dL (0.2-1.3); Blood Urea Nitrogen 7 mg/dL (7-17); Calcium 7.6 mg/dL (8.4-10.2); Carbon Dioxide 28 mmol/L (22-32); Chloride 105 mmol/L (98-107); Estimated Glomerular Filt Rate > 60 mL/min (>60); Globulin 2.7 g/dL (1.7-4.1); Glucose 94 mg/dL (70-100); HEMOLYSIS 19 (0-50); Magnesium 1.9 mg/dL (1.6-2.3); Potassium 3.7 mmol/L (3.4-5.1); Sodium 135 mmol/L (137-145); Total Protein 4.5 g/dL (6.3-8.2)
[2023-01-26 05:01] LABS: Anisocytosis 1+; Macrocytosis 2+; Neutrophils Absolute Manual 7011 /uL (3000-5900); Platelet Estimate Decreased on smear; Target Cells 2+; Total Cells Counted 100
[2023-01-26 08:00] VITALS: BP 153/87; PULSE 80; RESP 17; TEMP 37.1; O2SAT 98
[2023-01-26] MEDS: ENOXAPARIN 30 MG/0.3 ML SYRINGE SUBCUT (08:05)
[2023-01-26] MEDS: NICOTINE 21 MG PATCH TOP (08:05)
[2023-01-26] MEDS: ONDANSETRON 4 MG/2 ML INJ IV (08:05)
--- NOTE | 2023-01-26 10:40 | CM.DPC ---
DCP Cont. Reviewed EMR and team rounds for status updates. Pt was transferred to [facility] today for ERCP/EUS and then return back INPT here. Follow for likely need of PT eval when more medically stable to r/o HH and other needs. Cont. to follow.
--- NOTE | 2023-01-26 12:58 | PC.NURSE ---
campus interviews intern notified this RN that pt was not coming back per weigh and charge worker at [facility]. network operations analyst called this RN to notify as well, and stated there were lots of cysts in pt's GI from ERCP/EUS and MRI. network operations analyst stated MD wanted to treat pt at [facility], so they were getting a room set up for her, and that we needed to call pt's son to bring stuff to [facility]. This RN notified son. Son, Juan José, stated he could p/u pt's items after work today after 1700. Collected Pt's items, put pt label stickers, and items were given to weigh and charge worker, who put items in weigh and charge worker office. MD notified. Awaiting d/c orders from MD to take pt out of system.
--- NOTE | 2023-01-26 13:03 | P.DS_ITS ---
History of Present Illness History of Present Illness Date Patient Seen: 01/26/23 Time Patient Seen: 13:03 Chief complaint: Twitching, dizzy, weak Narrative: Per admitting provider, Pat Portillo is a 47-year-old female history of alcohol abuse sober for 3 years general decline who presented with son today with slurring speech, altered mental status and shaking. Apparently was at [facility] recently she reports some abdominal pain some sort of imaging and blood transfusion. Unclear if she has blood in stool or vomiting blood she is overall very poor historian. She seemed altered on presentation and obviously shaking and her son reported she has never been this way before. She was identified as sepsis with temperature of a 100.2? tachycardic and soft blood pressure 101/68. She has no abdominal pain. No vomiting Records from [facility] on January 05 were received by the ER and reviewed. Patient has chronic pancreatitis, she is biliary stent she was supposed to see GI for stent removal, stone removal and pain injection however due to pain they referred her to the ED she has been seen at the ED numerous times for pain and unable to make GI appointments which were canceled for various reasons. Patient had blood work at [facility] presentation time and a CT which showed acute on chronic pancreatitis. She was instructed to follow-up with GI apparently she sees Dr. Reveles at [facility]. There is an addendum at the end of the note on January 07 which shows that urine culture grew E coli however at the time of collection there were no signs or symptoms. She did have a few leukocyte esterase and bacteria no nitrates. However, it appears the urine was not treated. MRCP done today shows chronic pancreatitis and pancreatic cysts with no indication of infection of the biliary stent. This imaging was discussed with GI today and they confirm that infection is likely not GI related. Discharge Providers Provider Date of admission: 01/23/23 17:44 Discharge Date: 01/26/23 Consults: 01/23/23 18:24 Consult to Dietitian, Adult Routine Comment: Reason For Exam: unintentional weight loss > 15 lbs in 3 months 01/24/23 11:12 Consult to Dietitian, Adult Routine Comment: Reason For Exam: asess for malnutriton, prealbumin pending Discharge provider: Paulino Hanson DO Summary Hospital Course Discharge Diagnosis: # Sepsis secondary to acute cystitis with E.coli , possible infected pancreatic cysts and Klebsiella bacteremia with acute metabolic encephalopathy, hypotension, and thrombocytopenia. # chronic pancreatitis with pancreatitc cysts # Biliary stent # History of alcohol abuse #chronic anemia with recent blood transfusion # urine infection Hospital Course: Pat Portillo is a 47-year-old female history of alcohol abuse sober for 3 years who was admitted with sepsis, she was also discovered after admission a previous biliary stent that needed to be removed by GI. MRCP was performed which showed persistent but seemingly stable cysts. She was admitted for further evaluation of sepsis and started on antibiotics. Urine culture was also positive for E. coli, but blood cultures were notable for Klebsiella. She was started and continued on zosyn until transfer. Patient was arranged for transfer to [facility] for stent removal with plan for transfer back. However, after ERCP GI physician recommended she stay at [facility]. Records from [facility] on January 05 were received by the ER and reviewed. Patient has chronic pancreatitis, she is biliary stent she was supposed to see GI for stent removal, stone removal and pain injection however due to pain they referred her to the ED she has been seen at the ED numerous times for pain and unable to make GI appointments which were canceled for various reasons. Patient had blood work at [facility] presentation time and a CT which showed acute on chronic pancreatitis. She was instructed to follow-up with GI apparently she sees Dr. Reveles at [facility]. There is an addendum at the end of the note on January 07 which shows that urine culture grew E coli however at the time of collection there were no signs or symptoms. She did have a few leukocyte esterase and bacteria no nitrates. However, it appears the urine was not treated. MRCP done today shows chronic pancreatitis and pancreatic cysts with no indication of infection of the biliary stent. This imaging was discussed with GI today and they confirm that infection is likely not GI related. Time Spent with Patient Time spent: Greater than 30 minutes Exam Vital Signs (past 8 hours): - 01/26/23 08:00 Temperature 98.7 F Pulse Rate 80 Respiratory Rate 17 Blood Pressure 153/87 H Pulse Oximetry 98 Oxygen Flow Rate 0 Fraction of Inspired Oxygen 21 SaO2/FiO2 Ratio 466 Oxygen Delivery Method Room Air Oxygen Flow Rate 0 Narrative Exam Narrative: Gen: no acute distress Objective Labs 01/26/23 04:28 01/26/23 04:28 Labs: Laboratory Results - last 24 hr 01/26/23 04:28 WBC 12.3 H RBC 2.09 L Hgb 8.0 L Hct 23.7 L MCV 113.2 H MCH 38.2 H MCHC 33.8 RDW 18.7 H Plt Count 105 L Neut % (Auto) Not Reportable Lymph % (Auto) Not Reportable [place] % (Auto) Not Reportable Eos % (Auto) Not Reportable Baso % (Auto) Not Reportable Lymph # (Auto) Not Reportable [place] # (Auto) Not Reportable Baso # (Auto) Not Reportable Total Counted 100 Seg Neutrophils % 57.0 Lymphocytes % (Manual) 35.0 Atypical Lymphs % 1.0 H Monocytes % (Manual) 2.0 Eosinophils % (Manual) 3.0 Basophils % (Manual) 2.0 H Neutrophils # (Manual) 7011 H Platelet Estimate Decreased on smear RBC Morphology See below Anisocytosis 1+ H Macrocytosis 2+ H Target Cells 2+ H Sodium 135 L Potassium 3.7 Chloride 105 Carbon Dioxide 28 BUN 7 Creatinine 0.40 L Estimated GFR > 60 BUN/Creatinine Ratio 17.5 Glucose 94 Calcium 7.6 L Magnesium 1.9 Total Bilirubin 1.1 AST 32 ALT 21 Alkaline Phosphatase 141 H Total Protein 4.5 L Albumin 1.8 L Globulin 2.7 Albumin/Globulin Ratio 0.7 L Procalcitonin 4.20 H PFSH Social History household members: children Smoking Status: Current every day smoker alcohol intake: former Discharge Plan Discharge Plan Patient Disposition: [facility] Provider Discharge Comment: 47 F admitted initially with sepsis, transferred for ERCP with stent removal. Found multiple cystic lesions, GI physician recommended keeping her at facility for further evaluation and management Diet/Activity/Treatments Diet: Diet as Tolerated Liquid consistency: Normal/Thin Food texture: Regular Activity: As tolerated Visit Report/Discharge Packet Stand Alone Forms: Patient Portal/API
--- NOTE | 2023-01-28 13:40 | CM.DPC ---
Addendum entered by ZINA Turner 01/28/23 15:01: Juan José returned this ENERGY TRADER voicemail. ENERGY TRADER gave Juan José Demarco's phone number for either him to contact or patient to contact. Juan José reported being appreciative of the information. SL Original Note: DCP Continued: From CM Land Development Manager BOB Gibson (ph [phone]) from [facility] has been calling re: laborer marine terminal application for childcare. CM Land Development Manager asked this ENERGY TRADER to call patient's son, Juan José, to reach out to patient for patient to reach out to Pat. ENERGY TRADER lvm with son Juan José (ph [phone]). CM team will continue to follow as able. ZINA Turner
== END 2023-01-26 13:13 | disposition short-term general hospital (02) | DRG 720 ==
LOC: ED 17:44 → AC 17:44 → ICU 01-24 19:58
PROVIDERS: Admitting Provider Neuromusculoskeletal Medicine, Sports Medicine; Emergency Provider Emergency Medicine; Referring Provider Emergency Medicine; Visit Provider Neuromusculoskeletal Medicine, Sports Medicine
DX: A41.9 Sepsis, unspecified organism (principal); G93.41 Metabolic encephalopathy; K86.1 Other chronic pancreatitis; R47.81 Slurred speech; K86.2 Cyst of pancreas; N30.00 Acute cystitis without hematuria; B96.20 Unspecified Escherichia coli [E. coli] as the cause of diseases classified elsewhere; B96.1 Klebsiella pneumoniae [K. pneumoniae] as the cause of diseases classified elsewhere; D69.59 Other secondary thrombocytopenia; D64.9 Anemia, unspecified; Z98.890 Other specified postprocedural states
CPT/HCPCS: 36415; 70450; 71045; 71260; 74177; 74183; 80051; 80053; 80076; 80305; 80320; 80329; 81001; 81025; 82140; 82962; 83605; 83690; 83735; 84100; 84134; 84145; 84443; 85007; 85025; 86850; 86900; 86901; 87040; 87086; 87154; 87186; 87633; 93005; 94640; 96365; 99285; A9270; G0480; J1650; J2310; J2405; J2543; J7613; Q9967